=== PATIENT | female | born 1940 | race African-American/Black ===

== ENCOUNTER 2016-05-29 15:19 | Inpatient (IN) | payer MEDICARE, OTHER ==
[~2016-05-29] VITALS: Ht 154.9 cm; Wt 62.1 kg
[2016-05-29 15:41] VITALS: BP 144/71
[2016-05-29] MEDS ORDERED: DuoNeb 0.5-3(2.5)mg/3ml neb HHN ONE (15:45)
--- NOTE | 2016-05-29 15:46 | Emergency Room Report ---
History of Present Illness General Chief Complaint: Dyspnea/Respdistress Source: Patient Present Illness HPI Patient is a 75-year-old female who presented after increased cough and difficulty breathing. Patient had prior history of asthma. Patient has been having increased cough which had been present for approximately 2 weeks. Patient had not been recent steroids. Patient been taking Advair inhaler. She had been taking cough syrup. She had not been having any leg pain or swelling. The patient been having increased difficulty with lying flat. Patient had previously been told she may have COPD. Patient had some worsening of symptoms and presented to the hospital. Allergies: Coded Allergies: ACETAMINOPHEN (Verified Allergy, Unknown, 05/29/16) CODEINE (Verified Allergy, Unknown, 05/29/16) HYDROCODONE (Verified Allergy, Unknown, 05/29/16) PENICILLIN G (Verified Allergy, Unknown, 05/29/16) Patient History Now: No Reviewed Nursing Documentation: PMH: Agreed, PSxH: Agreed Nursing Documentation-PMH Past Medical History: No History, Except For Hx Hypertension: Yes Hx Asthma: Yes Hx Cerebrovascular Accident: Yes - 3 strokes Review of Systems All Other Systems: negative except mentioned in HPI Physical Exam Vital Signs Date Time Temp Pulse Resp B/P Pulse Ox O2 Delivery O2 Flow Rate FiO2 05/29/16 15:24 97.9 104 20 144/71 93 Room Air Sp02 EP Interpretation: reviewed, normal General Appearance: normal inspection, well appearing, no apparent distress, alert, GCS 15 Head: atraumatic ENT: normal ENT inspection, hearing grossly normal, normal voice Neck: normal inspection, full range of motion, supple, no bony tend Respiratory: normal inspection, no retraction, accessory muscle use, wheezing, expiration Cardiovascular #1: regular rate, rhythm, no edema Gastrointestinal: normal inspection, normal bowel sounds, non tender, soft, no guarding, no hernia Genitourinary: no CVA tenderness Musculoskeletal: normal inspection, back normal, normal range of motion Neurologic: normal inspection, alert, oriented x3, responsive, mender knit goods III-XII nml as tested, speech normal Psychiatric: normal inspection, judgement/insight normal, mood/affect normal Skin: normal inspection, normal color, no rash Medical Decision Making Diagnostic Impression: Primary Impression: Asthma exacerbation Additional Impression: COPD (chronic obstructive pulmonary disease) ER Course Patient presented for shortness of breath. Differential included but was not limited to anemia, pneumonia, pneumothorax, myocardial infarction, pericardial effusion, congestive heart failure, acidosis. Because of complexity of patient' s case laboratory testing and imaging studies were ordered. The patient was noted to have a history of asthma and this appears to be an exacerbation of her asthma. The patient was not febrile. Patient was given breathing treatments and was noted to have a minimal improvement. The patient' s chest x-ray one view interpreted by me showed bilateral lung angeles with interstitial edema and infiltrate. The laboratory studies were notable for normal BNP as well as negative troponin. Dr. Calin Tse was contacted for inpatient management Labs Test 05/29/16 17:25 White Blood Count 7.9 K/UL (4.8-10.8) Red Blood Count 4.65 M/UL (4.20-5.40) Hemoglobin 12.6 G/DL (12.0-16.0) Hematocrit 40.8 % (37.0-47.0) Mean Corpuscular Volume 88 FL (80-99) Mean Corpuscular Hemoglobin 27.0 PG (27.0-31.0) Mean Corpuscular Hemoglobin Concent 30.7 G/DL (32.0-36.0) Red Cell Distribution Width 13.2 % (11.6-14.8) Platelet Count 334 K/UL (150-450) Mean Platelet Volume 7.2 FL (6.5-10.1) Neutrophils (%) (Auto) 54.2 % (45.0-75.0) Lymphocytes (%) (Auto) 31.5 % (20.0-45.0) Monocytes (%) (Auto) 6.2 % (1.0-10.0) Eosinophils (%) (Auto) 6.6 % (0.0-3.0) Basophils (%) (Auto) 1.5 % (0.0-2.0) Prothrombin Time 11.1 SEC (9.30-11.50) Prothromb Time International Ratio 1.1 (0.9-1.1) Activated Partial Thromboplast Time 29 SEC (23-33) Urine Color Pale yellow Urine Appearance Clear Urine pH 7 (4.5-8.0) Urine Specific [place] 1.010 (1.005-1.035) Urine Protein Negative (NEGATIVE) Urine Glucose (UA) Negative (NEGATIVE) Urine Ketones Negative (NEGATIVE) Urine Occult Blood Negative (NEGATIVE) Urine Nitrite Negative (NEGATIVE) Urine Bilirubin Negative (NEGATIVE) Urine Urobilinogen Normal MG/DL (0.0-1.0) Urine Leukocyte Esterase 1+ (NEGATIVE) Urine RBC 0 /HPF (0 - 2) Urine WBC 2-4 /HPF (0 - 2) Urine Squamous Epithelial Cells Few /LPF (NONE/OCC) Urine Bacteria Few /HPF (NONE) Sodium Level 138 mEQ/L (135-145) Potassium Level 4.3 mEQ/L (3.4-4.9) Chloride Level 97 mEQ/L (98-107) Carbon Dioxide Level 26 mEQ/L (20-30) Anion Gap 15 (5-15) Blood Urea Nitrogen 9 mg/dL (7-23) Creatinine 0.8 mg/dL (0.5-0.9) Estimat Glomerular Filtration Rate mL/min (>60) Glucose Level 96 mg/dL (74-106) Lactic Acid Level 0.70 mmol/L (0.66-2.22) Calcium Level 8.9 mg/dL (8.6-10.2) Total Bilirubin 0.2 mg/dL (0.0-1.2) Aspartate Amino Transf (AST/SGOT) 21 U/L (5-40) Alanine Aminotransferase (ALT/SGPT) 15 U/L (3-33) Alkaline Phosphatase 78 U/L (35-104) Total Creatine Kinase 189 U/L (26-140) Creatine Kinase MB 3.7 ng/mL (< 3.8) Creatine Kinase MB Relative Index 1.9 Troponin I < 0.30 ng/mL (<=0.30) Pro-B-Type Natriuretic Peptide 56 pg/mL (0-125) Total Protein 7.7 g/dL (6.6-8.7) Albumin 3.4 g/dL (3.5-5.2) Globulin 4.3 g/dL Albumin/Globulin Ratio 0.7 (1.0-2.7) Last Vital Signs Date Time Temp Pulse Resp B/P Pulse Ox O2 Delivery O2 Flow Rate FiO2 05/29/16 15:24 97.9 104 20 144/71 93 Room Air Status: unchanged Disposition: ADMITTED INPATIENT Condition: Serious Maxwell Chu May 29, 2016 15:46
[2016-05-29] MEDS ORDERED: Azithromycin 500 MG in D5W 275 ML IVPB ONE (16:30)
[2016-05-29] MEDS ORDERED: Azithromycin Inj IV ONE (17:08)
[2016-05-29 17:43] VITALS: BP 131/83
[2016-05-29 17:52] LABS: BASOPHILS % (AUTO) 1.5 % (0.0-2.0); EOSINOPHILS % (AUTO) 6.6 % (0.0-3.0); LYMPHOCYTES % (AUTO) 31.5 % (20.0-45.0); MEAN CORPUSCULAR HGB CONC 30.7 G/DL (32.0-36.0); MEAN CORPUSCULAR VOLUME 88 FL (80-99); MEAN PLATELET VOLUME 7.2 FL (6.5-10.1); MONOCYTES % (AUTO) 6.2 % (1.0-10.0); NEUTROPHILS % (AUTO) 54.2 % (45.0-75.0); PLATELET COUNT 334 K/UL (150-450); RED BLOOD COUNT 4.65 M/UL (4.20-5.40); RED CELL DISTRIBUTION WIDTH 13.2 % (11.6-14.8); WHITE BLOOD COUNT 7.9 K/UL (4.8-10.8)
[2016-05-29 17:55] LABS: APPEARANCE,URINE CLEAR; KETONES,URINE NEGATIVE (NEGATIVE); LEUKOCYTE ESTERASE ,URINE 1+ (NEGATIVE); NITRITE,URINE NEGATIVE (NEGATIVE); PH,URINE 7 (4.5-8.0); PROTEIN,URINE NEGATIVE (NEGATIVE); UROBILINOGEN,URINE NORMAL MG/DL (0.0-1.0)
[2016-05-29 18:03] LABS: INR 1.1 (0.9-1.1); PROTHROMBIN TIME 11.1 SEC (9.30-11.50)
[2016-05-29 18:06] LABS: ALANINE AMINOTRANSFERASE 15 U/L (3-33); ALBUMIN/GLOBULIN RATIO 0.7 (1.0-2.7); ANION GAP 15 (5-15); ASPARTATE AMINO TRANSFERASE 21 U/L (5-40); CALCIUM 8.9 mg/dL (8.6-10.2); CARBON DIOXIDE 26 mEQ/L (20-30); CHLORIDE 97 mEQ/L (98-107); CREATININE 0.8 mg/dL (0.5-0.9); HEMOLYSIS 7; POTASSIUM 4.3 mEQ/L (3.4-4.9); SODIUM 138 mEQ/L (135-145); TOTAL PROTEIN 7.7 g/dL (6.6-8.7); TROPONIN I < 0.30 ng/mL (<=0.30)
[2016-05-29 18:11] LABS: BACTERIA,URINE FEW /HPF; RBC,URINE 0 /HPF (0 - 2); SQUAMOUS EPITHELIAL CELL,UR FEW /LPF (NONE/OCC)
[2016-05-29 18:17] LABS: CKMB 3.7 ng/mL (< 3.8)
[2016-05-29] MEDS ORDERED: VITAMIN D250000 UNI1 ORAL (18:27)
[2016-05-29] MEDS ORDERED: IBUPROFEN600 MG ORAL (18:27)
[2016-05-29] MEDS ORDERED: BENAZEPRIL HCL10 MG ORAL (18:27)
[2016-05-29] MEDS ORDERED: ALBUTEROL2.5 MG/3 M INH (18:29)
[2016-05-29] MEDS ORDERED: FAMOTIDINE20 MG ORAL (18:29)
[2016-05-29] MEDS ORDERED: ADVAIR 250-501 EACH INH (18:29)
[2016-05-29 19:44] VITALS: BP 129/75
[2016-05-29 22:22] VITALS: BP 107/64
[2016-05-29] MEDS ORDERED: Albuterol ud Inhalation HHN PRN (22:45)
[2016-05-29] MEDS ORDERED: AZOPT10 ML OP (22:49)
[2016-05-29] MEDS ORDERED: BRIMONIDINE TART5 ML BOTH EYES (22:49)
[2016-05-29] MEDS ORDERED: LUMIGAN2.5 ML BOTH EYES (22:49)
[2016-05-29] MEDS ORDERED: BEPREVE10 ML OP (22:49)
[2016-05-30] VITALS: BP 138/67
[2016-05-30 04:00] VITALS: BP 122/65
[2016-05-30 08:00] VITALS: BP 133/69
[2016-05-30 08:21] LABS: BASOPHILS % (AUTO) 1.3 % (0.0-2.0); EOSINOPHILS % (AUTO) 9.5 % (0.0-3.0); MEAN CORPUSCULAR HEMOGLOBIN 27.2 PG (27.0-31.0); MEAN CORPUSCULAR HGB CONC 30.9 G/DL (32.0-36.0); MEAN CORPUSCULAR VOLUME 88 FL (80-99); MONOCYTES % (AUTO) 6.4 % (1.0-10.0); NEUTROPHILS % (AUTO) 50.7 % (45.0-75.0); PLATELET COUNT 323 K/UL (150-450); RED BLOOD COUNT 4.64 M/UL (4.20-5.40); RED CELL DISTRIBUTION WIDTH 13.5 % (11.6-14.8); WHITE BLOOD COUNT 6.6 K/UL (4.8-10.8)
[2016-05-30] MEDS: guaiFENesin 100mg/5ml Liq ud ORAL PRN ×3 (08:36→17:49)
[2016-05-30 08:45] LABS: ANION GAP 13 (5-15); CALCIUM 9.2 mg/dL (8.6-10.2); CARBON DIOXIDE 27 mEQ/L (20-30); CHLORIDE 98 mEQ/L (98-107); CREATININE 0.8 mg/dL (0.5-0.9); HEMOLYSIS 0; SODIUM 138 mEQ/L (135-145)
[2016-05-30] MEDS ORDERED: Benazepril 10mg tab ORAL SCH (09:00)
[2016-05-30] MEDS ORDERED: Heparin 5000 units/ml inj SUBQ SCH (09:00)
[2016-05-30] MEDS ORDERED: Advair 250/50 Inhaler - 14 dose INH SCH (09:00)
[2016-05-30] MEDS ORDERED: Famotidine 20 MG/ 2ML VIAL IVP SCH (09:00)
[2016-05-30] MEDS ORDERED: Solu-MEDROL 40mg Inj IVP SCH (09:30)
[2016-05-30 12:04] VITALS: BP 125/63
--- NOTE | 2016-05-30 12:18 | Diagnostic Imaging Report ---
Indication: SOB Technique: One view of the chest Comparison: none Findings: Heart size is upper limits normal. There is bilateral mostly interstitial parenchymal disease. Presence of numerous small cysts bilaterally suggesting may be a significant chronic component to this, however. Pleural spaces are clear Impression: Bilateral pulmonary mostly interstitial parenchymal disease, acuity indeterminate. Correlate with clinical findings
[2016-05-30 16:00] VITALS: BP 118/67
[2016-05-30] MEDS ORDERED: Albuterol ud Inhalation HHN PRN (17:00)
[2016-05-30] MEDS: Advair 250/50 Inhaler - 14 dose INH SCH (19:11)
--- NOTE | 2016-05-30 19:58 | History and Physical Report ---
DATE OF ADMISSION: 05/29/2016 REASON FOR ADMISSION: Shortness of breath, respiratory insufficiency, and COPD. HISTORY OF PRESENT ILLNESS: The patient is a 75-year-old female who presents with increasing cough, difficulty breathing. The patient with known history of asthma/COPD. The patient is not on oxygen at home. The patient with increasing cough and difficulty mobilizing sputum over the past two weeks, worsening in severity. No recent steroid use. The patient has been taking her Advair inhaler and currently asking for cough medicine. The patient denies any neck pain, chest pain, chest tightness, or hemoptysis. No ill contacts. No recent travel. The patient has worsening symptoms for a while now presents for evaluation. PAST MEDICAL HISTORY: Notable for the above. The patient has history of three strokes in the past, hypertension, and asthma/COPD. MEDICATIONS: Reviewed. ALLERGIES: Reviewed. SOCIAL HISTORY: She does not smoke. She does have a history of smoking . She lives with her family. REVIEW OF SYSTEMS: The patient's review of systems otherwise negative. The patient does admit to some arthritis. PHYSICAL EXAMINATION: GENERAL: The patient is a well-developed female, otherwise comfortable. VITAL SIGNS: Blood pressure 133/69, pulse 74, respiratory rate 21, saturation 95%, and temperature is 96.8 degrees. HEENT: Fairly negative. Extraocular movements are grossly intact. NECK: Supple. No jugular venous distention. LUNGS: Reduced air entry. Occasional wheezes, otherwise clear. CARDIAC: Normal S1 and S2. Regular rhythm. Systolic murmur noted at the parasternal border. No rubs or gallops. ABDOMEN: Soft, nontender, and nondistended. EXTREMITIES: No cyanosis. No clubbing. No edema. NEUROLOGIC: Grossly nonfocal. LABORATORY AND DIAGNOSTIC DATA: Laboratory data reviewed. CBC essentially normal. Chemistry fairly negative. Blood sugar slightly elevated 118. IMPRESSION: 1. Chronic obstructive pulmonary disease/asthma with acute exacerbation. 2. Remote history of smoking. 3. Respiratory insufficiency. 4. Possible mild underlying respiratory infection. 5. Hypertension. 6. Hypertensive heart disease. RECOMMENDATIONS: 1. Support clinically and monitor. 2. Receiving nebulized therapy, Advair. 3. We will add Solu-Medrol for the next 48 hours and monitor the need for further changes, and discharge the patient to home with outpatient followup. Calin Tse M.D. DR: BRAYDEN JOB#: [id number] CC: MAL
[2016-05-30 20:00] VITALS: BP 123/61
[2016-05-30] MEDS: Solu-MEDROL 40mg Inj IVP SCH (20:51)
[2016-05-30] MEDS: Heparin 5000 units/ml inj SUBQ SCH (20:55)
[2016-05-31] VITALS: BP 147/64
--- NOTE | 2016-05-31 | Cardiology Report ---
APPROVED REPORT EKG Measurement Heart [id number] PA [id number] Normal sinus rhythm Normal ECG
[2016-05-31 04:00] VITALS: BP 139/66
[2016-05-31] MEDS: guaiFENesin 100mg/5ml Liq ud ORAL PRN (08:04)
[2016-05-31] MEDS: Solu-MEDROL 40mg Inj IVP SCH ×2 (08:04→20:33)
[2016-05-31] MEDS: Heparin 5000 units/ml inj SUBQ SCH ×2 (08:05→20:39)
[2016-05-31] MEDS: Benazepril 10mg tab ORAL SCH (08:08)
[2016-05-31 08:18] VITALS: BP 120/66
[2016-05-31] MEDS: Famotidine 20 MG/ 2ML VIAL IVP SCH (09:01)
[2016-05-31] MEDS: Advair 250/50 Inhaler - 14 dose INH SCH ×2 (09:02→18:00)
[2016-05-31 12:00] VITALS: BP 124/63
--- NOTE | 2016-05-31 15:13 | General Progress Note ---
Assessment/Plan Assessment/Plan IMPRESSION: 1. Chronic obstructive pulmonary disease/asthma with acute exacerbation. 2. Remote history of smoking. 3. Respiratory insufficiency. 4. Possible mild underlying respiratory infection. 5. Hypertension. 6. Hypertensive heart disease. Plan no change respiratory care convert to PO and inhalers dc in am home health on dc pft after dc to evaluate status impression, plan, and exam edited and reviewed in detail care discussed with RN Subjective Allergies: Coded Allergies: ORANGE (Verified Allergy, Mild, Skin irritation/itching, 05/30/16) PINEAPPLE (Verified Allergy, Mild, Skin irritation/itching, 05/30/16) STRAWBERRY (Verified Allergy, Mild, Skin irritation/itching, 05/30/16) ACETAMINOPHEN (Verified Allergy, Unknown, 05/29/16) CODEINE (Verified Allergy, Unknown, 05/29/16) HYDROCODONE (Verified Allergy, Unknown, 05/29/16) PENICILLIN G (Verified Allergy, Unknown, 05/29/16) Subjective care noted overall better d/w daughter in length Objective Last 24 Hour Vital Signs Date Time Temp Pulse Resp B/P Pulse Ox O2 Delivery O2 Flow Rate FiO2 05/31/16 12:00 98.2 99 20 124/63 93 Room Air 05/31/16 08:18 97.9 84 20 120/66 93 Nasal Cannula 2.0 05/31/16 08:08 120/66 05/31/16 04:00 97.2 71 18 139/66 99 Room Air 05/31/16 00:00 96.8 77 18 147/64 97 Room Air 05/30/16 20:00 97.5 83 20 123/61 100 Nasal Cannula 2.0 05/30/16 16:00 97.7 79 20 118/67 99 Nasal Cannula 2.0 Intake and Output 05/30/16 05/31/16 19:00 07:00 Intake Total 600 ml 420 ml Balance 600 ml 420 ml Intake Oral 600 ml 420 ml # Voids 3 Height (Feet): 5 Height (Inches): 1.00 Weight (Pounds): 137 Objective GENERAL: The patient is a well-developed female, otherwise comfortable. and much improved HEENT: Fairly negative. Extraocular movements are grossly intact. NECK: Supple. No jugular venous distention. LUNGS: Reduced air entry. minimal wheezes, otherwise clearer. CARDIAC: Normal S1 and S2. Regular rhythm. Systolic murmur noted at the parasternal border. No rubs or gallops. ABDOMEN: Soft, nontender, and nondistended. EXTREMITIES: No cyanosis. No clubbing. No edema. NEUROLOGIC: Grossly nonfocal. MARILU GRANT May 31, 2016 15:13
[2016-05-31 16:00] VITALS: BP 138/79
[2016-05-31 20:00] VITALS: BP 134/67
[2016-06-01] VITALS: BP 110/57
[2016-06-01 04:00] VITALS: BP 128/65
[2016-06-01 08:00] VITALS: BP 140/65
[2016-06-01 09:00] VITALS: BP 140/65
[2016-06-01] MEDS: Benazepril 10mg tab ORAL SCH (09:00)
[2016-06-01] MEDS: Solu-MEDROL 40mg Inj IVP SCH (09:00)
[2016-06-01] MEDS: Heparin 5000 units/ml inj SUBQ SCH (09:07)
[2016-06-01] MEDS: Famotidine 20 MG/ 2ML VIAL IVP SCH (09:52)
[2016-06-01] MEDS ORDERED: [UNRECOGNIZED DRUG - OTHER] PO (10:07)
[2016-06-01] MEDS ORDERED: ZITHROMAX TRI-500 MG ORAL (10:14)
[2016-06-01] MEDS ORDERED: MEDROL2 MG PO (10:16)
--- NOTE | 2016-06-01 11:37 | General Progress Note ---
Assessment/Plan Assessment/Plan IMPRESSION: 1. Chronic obstructive pulmonary disease/asthma with acute exacerbation. 2. Remote history of smoking. 3. Respiratory insufficiency. 4. Possible mild underlying respiratory infection. 5. Hypertension. 6. Hypertensive heart disease. Plan no change respiratory care advair and incruise given dc today home health on dc pft after dc to evaluate status in the office impression, plan, and exam edited and reviewed in detail care discussed with RN Subjective Allergies: Coded Allergies: ORANGE (Verified Allergy, Mild, Skin irritation/itching, 05/30/16) PINEAPPLE (Verified Allergy, Mild, Skin irritation/itching, 05/30/16) STRAWBERRY (Verified Allergy, Mild, Skin irritation/itching, 05/30/16) ACETAMINOPHEN (Verified Allergy, Unknown, 05/29/16) CODEINE (Verified Allergy, Unknown, 05/29/16) HYDROCODONE (Verified Allergy, Unknown, 05/29/16) PENICILLIN G (Verified Allergy, Unknown, 05/29/16) Subjective care noted much improved off oxygen wants to go home Objective Last 24 Hour Vital Signs Date Time Temp Pulse Resp B/P Pulse Ox O2 Delivery O2 Flow Rate FiO2 06/01/16 09:00 140/65 06/01/16 08:00 97.5 78 20 140/65 97 Room Air 06/01/16 04:00 97.9 70 18 128/65 95 Room Air 06/01/16 00:00 97.7 68 18 110/57 97 Room Air 05/31/16 20:00 98.4 67 18 134/67 100 Room Air 05/31/16 16:00 98.1 85 20 138/79 97 Room Air 05/31/16 12:00 98.2 99 20 124/63 93 Room Air Intake and Output 05/31/16 06/01/16 19:00 07:00 Intake Total 400 ml 350 ml Balance 400 ml 350 ml Intake Oral 400 ml 350 ml # Voids 2 4 Labs Test 05/29/16 17:25 05/30/16 07:40 White Blood Count 7.9 K/UL (4.8-10.8) 6.6 K/UL (4.8-10.8) Red Blood Count 4.65 M/UL (4.20-5.40) 4.64 M/UL (4.20-5.40) Hemoglobin 12.6 G/DL (12.0-16.0) 12.6 G/DL (12.0-16.0) Hematocrit 40.8 % (37.0-47.0) 40.9 % (37.0-47.0) Mean Corpuscular Volume 88 FL (80-99) 88 FL (80-99) Mean Corpuscular Hemoglobin 27.0 PG (27.0-31.0) 27.2 PG (27.0-31.0) Mean Corpuscular Hemoglobin Concent 30.7 G/DL (32.0-36.0) 30.9 G/DL (32.0-36.0) Red Cell Distribution Width 13.2 % (11.6-14.8) 13.5 % (11.6-14.8) Platelet Count 334 K/UL (150-450) 323 K/UL (150-450) Mean Platelet Volume 7.2 FL (6.5-10.1) 7.0 FL (6.5-10.1) Neutrophils (%) (Auto) 54.2 % (45.0-75.0) 50.7 % (45.0-75.0) Lymphocytes (%) (Auto) 31.5 % (20.0-45.0) 32.0 % (20.0-45.0) Monocytes (%) (Auto) 6.2 % (1.0-10.0) 6.4 % (1.0-10.0) Eosinophils (%) (Auto) 6.6 % (0.0-3.0) 9.5 % (0.0-3.0) Basophils (%) (Auto) 1.5 % (0.0-2.0) 1.3 % (0.0-2.0) Prothrombin Time 11.1 SEC (9.30-11.50) Prothromb Time International Ratio 1.1 (0.9-1.1) Activated Partial Thromboplast Time 29 SEC (23-33) Urine Color Pale yellow Urine Appearance Clear Urine pH 7 (4.5-8.0) Urine Specific [place] 1.010 (1.005-1.035) Urine Protein Negative (NEGATIVE) Urine Glucose (UA) Negative (NEGATIVE) Urine Ketones Negative (NEGATIVE) Urine Occult Blood Negative (NEGATIVE) Urine Nitrite Negative (NEGATIVE) Urine Bilirubin Negative (NEGATIVE) Urine Urobilinogen Normal MG/DL (0.0-1.0) Urine Leukocyte Esterase 1+ (NEGATIVE) Urine RBC 0 /HPF (0 - 2) Urine WBC 2-4 /HPF (0 - 2) Urine Squamous Epithelial Cells Few /LPF (NONE/OCC) Urine Bacteria Few /HPF (NONE) Sodium Level 138 mEQ/L (135-145) 138 mEQ/L (135-145) Potassium Level 4.3 mEQ/L (3.4-4.9) 4.0 mEQ/L (3.4-4.9) Chloride Level 97 mEQ/L (98-107) 98 mEQ/L (98-107) Carbon Dioxide Level 26 mEQ/L (20-30) 27 mEQ/L (20-30) Anion Gap 15 (5-15) 13 (5-15) Blood Urea Nitrogen 9 mg/dL (7-23) 8 mg/dL (7-23) Creatinine 0.8 mg/dL (0.5-0.9) 0.8 mg/dL (0.5-0.9) Estimat Glomerular Filtration Rate mL/min (>60) mL/min (>60) Glucose Level 96 mg/dL (74-106) 118 mg/dL (74-106) Lactic Acid Level 0.70 mmol/L (0.66-2.22) Calcium Level 8.9 mg/dL (8.6-10.2) 9.2 mg/dL (8.6-10.2) Total Bilirubin 0.2 mg/dL (0.0-1.2) Aspartate Amino Transf (AST/SGOT) 21 U/L (5-40) Alanine Aminotransferase (ALT/SGPT) 15 U/L (3-33) Alkaline Phosphatase 78 U/L (35-104) Total Creatine Kinase 189 U/L (26-140) Creatine Kinase MB 3.7 ng/mL (< 3.8) Creatine Kinase MB Relative Index 1.9 Troponin I < 0.30 ng/mL (<=0.30) Pro-B-Type Natriuretic Peptide 56 pg/mL (0-125) Total Protein 7.7 g/dL (6.6-8.7) Albumin 3.4 g/dL (3.5-5.2) Globulin 4.3 g/dL Albumin/Globulin Ratio 0.7 (1.0-2.7) Height (Feet): 5 Height (Inches): 1.00 Weight (Pounds): 137 Objective GENERAL: The patient is a well-developed female, otherwise comfortable. and much improved HEENT: Fairly negative. Extraocular movements are grossly intact. NECK: Supple. No jugular venous distention. LUNGS: improved air entry. no wheezes, otherwise clearer. CARDIAC: Normal S1 and S2. Regular rhythm. Systolic murmur noted at the parasternal border. No rubs or gallops. ABDOMEN: Soft, nontender, and nondistended. EXTREMITIES: No cyanosis. No clubbing. No edema. NEUROLOGIC: Grossly nonfocal. MARILU GRANT Jun 01, 2016 11:37
--- NOTE | 2016-06-02 14:47 | Discharge Summary ---
Discharge Summary Hospital Course Date of Admission May 29, 2016 at 16:48 Date of Discharge Jun 01, 2016 at 10:34 Admitting Diagnosis Copd exacerbation HPI Meghann Shabazz is a 75 year old female who was admitted on May 29, 2016 at 16:48 for Chronic Obstructive Pulmonary Disease Exacerbation Hospital Course [id number] Discharge Discharge Disposition Patient was discharged to Home (01) Discharge Diagnoses: Rach Richter NP Jun 02, 2016 14:47
--- NOTE | 2016-06-03 02:09 | Discharge Summary 2 SIG ---
DATE OF ADMISSION: 05/29/2016 DATE OF DISCHARGE: 06/01/2016 BRIEF HOSPITAL COURSE: The patient is a 75-year-old female who presented with increasing cough and difficulty breathing. The patient has a known history of asthma/COPD, and she is not on oxygen at home. She presented with increasing cough and difficulty moving sputum over the past two weeks with worsening in severity. No recent steroid use. She has been taking her Advair inhaler and medications not working with worsening of symptoms. There were no ill contacts and no recent travel. She was admitted and was given respiratory support and was given IV Solu-Medrol with nebulization. Steroid was eventually converted to p.o. and was discharged home with home health. Advised to follow up in the office for outpatient pulmonary function test. FINAL DIAGNOSES: 1. Chronic obstructive pulmonary disease/asthma with acute exacerbation. 2. Remote history of smoking. 3. Respiratory insufficiency. 4. Mild upper respiratory infection. 5. Hypertension. 6. Hypertensive heart disease. Calin Tse M.D. I have been assigned to dictate discharge summary on this account and I was not involved in the patient's management. Rach Richter N.P. DR: ASHLIE JOB#: [id number] CC:
== END 2016-06-01 10:34 | disposition home health service (06) | DRG 192 ==
LOC: EMR 16:00 → 2E 16:48 → EDBEDREQ 22:31 → 3E 05-30 16:39
DX: J44.1 Chronic obstructive pulmonary disease with (acute) exacerbation (principal); I11.9 Hypertensive heart disease without heart failure; J06.9 Acute upper respiratory infection, unspecified; Z87.891 Personal history of nicotine dependence
CPT/HCPCS: 36415; 71010; 80048; 80053; 81001; 81003; 82550; 82553; 83605; 83880; 84484; 85025; 85610; 85730; 87040; 93005; 94640; 94664; J7620

== ENCOUNTER → 2016-06-14 | Outpatient (CLI) | payer MEDICARE, OTHER ==
[~2016-06-14] MED LIST: ADVAIR 250-501 EACH INH; ALBUTEROL2.5 MG/3 M INH; AZOPT10 ML OP; BENAZEPRIL HCL10 MG ORAL; BEPREVE10 ML OP; BRIMONIDINE TART5 ML BOTH EYES; FAMOTIDINE20 MG ORAL; IBUPROFEN600 MG ORAL; LUMIGAN2.5 ML BOTH EYES; MEDROL2 MG PO; VITAMIN D250000 UNI1 ORAL; ZITHROMAX TRI-500 MG ORAL; [UNRECOGNIZED DRUG - OTHER] PO
--- NOTE | 2016-06-14 16:34 | Diagnostic Imaging Report ---
Clinical Indication: SOB Technique: Spiral acquisition obtained through the chest. No IV contrast utilized, per high resolution protocol. Axial 5 x 5 mm slices were reconstructed. Axial 1 mm thick slices were reconstructed using high resolution algorithm at 10 mm intervals. Multiplanar reconstructions generated. Total dose length product 530 mGycm. CTDIvol(s) 17 mGy. Dose reduction achieved using automated exposure control Comparison: Reference made to chest radiograph 05/29/2016 Findings: There is some image degradation at the lung bases due to respiratory motion artifact. There is extensive interstitial lung disease involving most of both lower lobes. There is also some involvement of the upper lobes, more in the right upper lobe and left upper lobe. There is also involvement of the right middle lobe. The interstitial disease consists predominantly of honeycombing and, to a slight extent, lower lobe bronchiectasis. A single bulla is seen in the medial lingula. No infiltrates, masses, or nodules. No effusions. No significant congestion. The pulmonary arteries are are ectatic, with the right main pulmonary artery frankly dilated measuring 3 cm in diameter. The heart size is normal. There is no pericardial effusion. There are prominent borderline enlarged right paratracheal and prevascular space lymph nodes. The thyroid is slightly heterogeneous, contains some left lobe calcifications. No axillary or chest wall mass or adenopathy demonstrated. The distal esophagus is distended. The bones are except for minimal thoracic degenerative changes. The included upper abdominal viscera are unremarkable. Impression: Bilateral extensive diffuse but lower lobe predominant interstitial disease. Honeycomb pattern and bronchiectasis indicates chronic end-stage interstitial fibrosis, nonspecific as regards etiology of the original disease process Dilated right pulmonary artery, somewhat ectatic main pulmonary artery, suspicious for pulmonary dural hypertension Borderline right paratracheal lymphadenopathy Focally distended distal esophagus. Uncertain significance,. Indicate motility disorder, hiatal hernia, much less likely distal obstructive lesion Somewhat enlarged somewhat heterogeneous thyroid with calcified nodules on the left. Consider ultrasound for further evaluation The CT scanner at [facility] is accredited by the [employer] and the scans are performed using protocols designed to limit radiation exposure to as low as reasonably achievable to attain images of sufficient resolution adequate for diagnostic evaluation. CT
== END | disposition home or self-care (01) ==
LOC: CAT 13:29
DX: R06.02 Shortness of breath (principal); J84.9 Interstitial pulmonary disease, unspecified; J84.10 Pulmonary fibrosis, unspecified; E04.1 Nontoxic single thyroid nodule
CPT/HCPCS: 71250

== ENCOUNTER 2018-12-14 14:45 | Inpatient (IN) | payer MEDICARE, OTHER ==
[~2018-12-14] VITALS: Ht 154.9 cm; Wt 59.0 kg
--- NOTE | 2018-12-14 13:50 | NUR ---
NURSE NOTES: Report received from Patrick Pride RN. Pt. not on the floor at this time. ETA 1500.
--- NOTE | 2018-12-14 15:12 | NUR ---
NURSE NOTES: Report received from Damien, Ambulance personnel. Pt. came in via gurhelio. AOx1. In 2L NC. Denies pain. IV L AC 20g placed at [place] on 12/14 per family, intact, SL. Pt. diagnosis per [place] AMS, pneumonia and hypoglycemia. Communicated with ER to fix admission diagnosis. monitor technician placed. Oriented to room. Bed on lowest position, side rails upx2, brakes engaged, alarm on, call light within easy reach. Family at bedside
--- NOTE | 2018-12-14 18:41 | Diagnostic Imaging Report ---
EXAM: MR Head Without Intravenous Contrast CLINICAL HISTORY: AMS TECHNIQUE: Magnetic resonance images of the head brain without intravenous contrast in multiple planes. COMPARISON: No relevant prior studies available. FINDINGS: Brain: Limited due to motion. No diffusion abnormality to indicate acute or subacute infarct. No clear hemorrhage or mass. Small chronic infarct in the left cerebellar hemisphere. Small chronic infarcts bilateral basal ganglia, caudate nucleus on the right and lentiform nucleus on the left. Generalized involutional and microvascular ischemic changes. Ventricles: The ventricular size is commensurate with central volume loss. Bones joints: Unremarkable. Sinuses: Left maxillary mucous retention cyst. Mastoid air cells: Unremarkable as visualized. No mastoid effusion. Orbits: Unremarkable as visualized. IMPRESSION: No clear acute intracranial process on motion limited exam. Small chronic basal ganglia and left cerebellar infarcts. Generalized involutional and microvascular ischemic changes. Left maxillary sinus mucous retention cyst
--- NOTE | 2018-12-14 19:02 | History & Physical ---
History and Physical History & Physicial Hubert Kaplan MD Dec 14, 2018 19:02
[2018-12-14] MEDS: D5 1/2NS 1,000 ML IV SCH (19:08)
[2018-12-14] MEDS ORDERED: Albuterol/Ipratropium 3ml neb HHN PRN (19:15)
--- NOTE | 2018-12-14 19:40 | NUR ---
NURSE NOTES: Received pt and report from SAMRA Head. Observed pt resting in bed with both eyes closed, arousable to voice and light touch. Pt is A/Ox1. air conditioning service technician is in placed, IV site intact, asymptomatic, and patent. Bed is in the lowest position and locked. Call light within reach. No signs/ symptoms of acute distress noted at this time. Will continue plan of care.
--- NOTE | 2018-12-14 19:48 | NUR ---
HAND-OFF: Report given to SAMRA Dowling. Plan of care endorsed.
[2018-12-14 20:00] VITALS: BP 149/69
--- NOTE | 2018-12-14 20:15 | History and Physical Report ---
DATE OF ADMISSION: 12/14/2018 CHIEF COMPLAINT: Altered mental status. HISTORY OF PRESENT ILLNESS: This is a 78-year-old female with past medical history significant for hypertension, dementia, COPD, prior history of stroke x3, appendectomy, who presented initially to [facility] after was noted to have altered mental status. The patient last time while she was eating burritos, the family member noticed that the patient is unresponsive and subsequently was transferred to the hospital. Shortly after initial evaluation at the emergency room, the patient was found to be as well as altered, unresponsive. Chest x-ray was done at the [facility] showed that there was bilateral lung infiltrate, most prominent at the lung base, finding are concerned about pneumonia, although the component of the pulmonary edema is likely presented and patient subsequently was transferred to [facility] for further evaluation and therapy. The patient subsequently was admitted to the hospital with altered mental status, most likely secondary to acute stroke as well as aspiration pneumonia. PAST MEDICAL HISTORY AND PAST SURGICAL HISTORY: Significant for prior history of stroke x3, hypertension, COPD, appendectomy, glaucoma, and dementia. MEDICATIONS: At home significant for benazepril, Alphagan, vitamin D, famotidine, Advair, ibuprofen, albuterol nebulizer, azithromycin, Lumigan, Medrol Dosepak was taken in the past. ALLERGIES: Acetaminophen, codeine, hydrocodone, penicillin, pineapple, strawberry, orange. SOCIAL HISTORY: Denies any smoking, alcohol, or drugs. FAMILY HISTORY: Heart disease runs in the family, hypertension, diabetes, stroke. Sister had a history of colon cancer. REVIEW OF SYSTEMS: Mostly as above. Denies any dysuria, frequency, hematuria. Denies any fever or chills. Denies any hemoptysis or hematochezia. PHYSICAL EXAMINATION: VITAL SIGNS: From the [place] was noted to be temperature 97.7, pulse of 67, respirations 17, blood pressure 147/67, repeat was 130/76. GENERAL: The patient is awake, responsive, groggy, sleepy occasionally. HEENT: Head and neck examination, pupils are reactive to light. Extraocular movements intact. NECK: Supple. No JVD. LUNGS: Good air entry. No wheezing or rhonchi. Decreased air entry in the bases. Poor inspiratory effort. HEART: S1 and S2. Regular rhythm. No gallops . ABDOMEN: Soft, nondistended, nontender. Positive bowel sounds. EXTREMITIES: No cyanosis, clubbing, or edema. NEUROLOGIC: Cranial nerves II through XII grossly normal. Motor is 5/5 in all extremities. Gait was not assessed due to the patient's status. RECTAL: Refused and deferred. GENITOURINARY: Refused and deferred. PSYCHIATRIC: Mood and affect is intact. LABORATORY AND DIAGNOSTIC DATA: On admission from [place], the patient had a CT scan of the brain was done noted to have brain atrophy with white matter ischemic changes, no acute infarction, bleeding, mass effect seen. No extraaxial fluid collection, probable lacunar infarction of the left basal ganglia and right thalamic, no acute finding, chronic changes of the brain atrophy with old lacunar infarction with white matter ischemia. Chest x-ray was noted bilateral lung infiltrates most prominent at the lung base, findings are concerning for the pneumonia, although the component of the pulmonary edema is likely presented with cardiomegaly. No large pleural effusion seen. WBC of 4.8, hemoglobin of 12, hematocrit 40, and platelets is 302. Sodium 140, potassium 4.0, chloride 103, bicarb 26, BUN 9, creatinine 0.6, glucose 92. INR is 1.2, PTT of 31. First troponin 0.02. ASSESSMENT: 1. Altered mental status, most likely secondary to the acute CVA and chronic CVA. 2. Aspiration pneumonia 3. Hypertension. 4. COPD. 5. PLAN: 1. Admit the patient to telemetry. 2. We will follow up with the laboratory as well as 2D echo. 3. Discussed with the daughter extensively at bedside. 4. Followup with MRI of the brain. 5. Code status is Full Code. 6. Discussed with Dr. Hedrick from Pulmonary Critical Care. 7. Broad-spectrum antibiotic with Rocephin and Flagyl. 8. DVT prophylaxis with heparin subcutaneous. Hubert Kaplan M.D. DR: Denice JOB#: [id number] CC:
[2018-12-14] MEDS: Aspirin Baby 81mg ORAL SCH (20:38)
[2018-12-14] MEDS: Heparin 5000 units/ml inj SUBQ SCH (20:43)
[2018-12-15] VITALS: BP 122/66
[2018-12-15 04:00] VITALS: BP 144/74
--- NOTE | 2018-12-15 07:25 | NUR ---
HAND-OFF: Report given to SAMRA Head. Pt is in stable condition. Plan of care endorsed.
--- NOTE | 2018-12-15 07:25 | NUR ---
NURSE NOTES: Report received from SAMRA Dowling. AOx2. In 2L NC. Denies any pain. Asking for food, will address to MD. IV running D5 1/2 NS at 75, site intact. Bed on lowest position, side rails upx2, brakes engaged. Call light within easy reach. Family at bedside.
[2018-12-15 08:00] VITALS: BP 138/77
--- NOTE | 2018-12-15 08:02 | Consultation ---
History of Present Illness General Date patient seen: Dec 15, 2018 Present Illness HPI 78-year-old female with PMHx of hypertension, dementia, COPD, stroke x3, who presented initially to [facility] with CC of ALOC when she was eating. the family member noticed that the patient is unresponsive . Initial evaluation at [place] revealed that her Chest x-ray has bilateral lung infiltrate, most prominent at the lung base. she transferred to [facility] for further evaluation. Allergies: Coded Allergies: ORANGE (Verified Allergy, Mild, Skin irritation/itching, 05/30/16) PINEAPPLE (Verified Allergy, Mild, Skin irritation/itching, 05/30/16) STRAWBERRY (Verified Allergy, Mild, Skin irritation/itching, 05/30/16) ACETAMINOPHEN (Verified Allergy, Unknown, 05/29/16) CODEINE (Verified Allergy, Unknown, 05/29/16) HYDROCODONE (Verified Allergy, Unknown, 05/29/16) PENICILLIN G (Verified Allergy, Unknown, 05/29/16) Medication History Scheduled Azithromycin (Zithromax Tri-Jaime), MG ORAL as directed, (Reported) Benazepril Hcl* (Benazepril Hcl*), 10 MG ORAL DAILY, (Reported) Bepotastine Besilate (Bepreve), 10 ML OP THREE TIMES A DAY, (Reported) Bimatoprost (Lumigan), 1 DROP BOTH EYES THREE TIMES A DAY, (Reported) Brimonidine Tartrate* (Alphagan*), 1 DROP BOTH EYES TID, (Reported) Brinzolamide (Azopt), 10 ML OP THREE TIMES A DAY, (Reported) Ergocalciferol (Vitamin D2)* (Vitamin D*), 50,000 UNIT ORAL ONCE A WEEK, ( Reported) Famotidine (Famotidine), 20 MG ORAL DAILY, (Reported) Fluticasone/Salmeterol (Advair 250-50 Diskus), 1 PUFF INH EVERY 12 HOURS, ( Reported) Ibuprofen* (Motrin*), 600 MG ORAL BID, (Reported) Methylprednisolone (Medrol), MG PO take as directed, (Reported) Scheduled PRN Albuterol Sulfate* (Albuterol Sulfate Hhn*), 3 ML INH Q4H PRN for Shortness of Breath, (Reported) Patient History Healthcare decision maker Luh True (daughter) Resuscitation status Full Code Advanced Directive on File No Past Medical/Surgical History Past Medical/Surgical History: (1) Hypertension (2) COPD (chronic obstructive pulmonary disease) (3) Alzheimer's dementia (4) History of CVA (cerebrovascular accident) Review of Systems All Other Systems: negative except mentioned in HPI Physical Exam General Appearance: WD/WN Lines, tubes and drains: peripheral HEENT: normocephalic, atraumatic Neck: non-tender, supple Respiratory/Chest: chest wall non-tender, lungs clear Breasts: no masses Cardiovascular/Chest: normal peripheral pulses Abdomen: normal bowel sounds, non tender Genitourinary/Rectal: normal genital exam, normal rectal exam Extremities: normal range of motion, non-tender Skin Exam: normal pigmentation 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 Last 24 Hour Vital Signs Date Time Temp Pulse Resp B/P (MAP) Pulse Ox O2 Delivery O2 Flow Rate FiO2 12/15/18 04:00 97.6 60 19 144/74 (97) 100 12/15/18 04:00 58 12/15/18 00:00 97.2 66 17 122/66 (84) 100 12/15/18 00:00 66 12/14/18 21:00 Nasal Cannula 2.0 12/14/18 20:00 97.7 69 18 149/69 (95) 98 12/14/18 20:00 76 12/14/18 16:14 Room Air 12/14/18 16:00 79 Intake and Output 12/14/18 12/15/18 19:00 07:00 Intake Total 120 ml Balance 120 ml Intake Oral 120 ml # Voids 1 2 Height (Feet): 5 Height (Inches): 1.00 Weight (Pounds): 130 Medications Current Medications Medications (Trade) Dose Ordered Sig/Lloyd Route PRN Reason Start Time Stop Time Status Last Admin Dose Admin Albuterol/ Ipratropium (Albuterol/ Ipratropium) 3 ml Q4H PRN HHN Shortness of Breath 12/14/18 19:15 12/19/18 19:14 Amlodipine Besylate (Norvasc) 5 mg DAILY ORAL 12/15/18 09:00 01/14/19 08:59 Aspirin (ASA) 81 mg DAILY ORAL 12/14/18 20:00 01/13/19 19:59 12/14/18 20:38 Ceftriaxone Sodium 1 gm/ Dextrose 55 ml @ 110 mls/hr Q24H IVPB 12/15/18 09:00 12/22/18 08:59 Dextrose/Sodium Chloride 1,000 ml @ 75 mls/hr [id number] IV 12/14/18 19:02 01/13/19 19:01 12/14/18 19:08 Heparin Sodium (Porcine) (Heparin 5000 units/ml) 5,000 units EVERY 12 HOURS SUBQ 12/14/18 21:00 01/13/19 20:59 Metronidazole 100 ml @ 100 mls/hr Q8HR IVPB 12/14/18 22:00 12/21/18 21:59 12/15/18 05:50 Ondansetron HCl (Zofran) 4 mg Q6H PRN IVP Nausea & Vomiting 12/14/18 16:15 01/13/19 16:14 Salmeterol Xinafoate/ Fluticasone (Advair 250/50 Diskus) 1 puffs BID INH 12/15/18 09:00 01/14/19 08:59 Assessment/Plan Problem List: (1) Aspiration pneumonia ICD Codes: J69.0 - Pneumonitis due to inhalation of food and vomit SNOMED: 065627411 (2) Acute encephalopathy ICD Codes: G93.40 - Encephalopathy, unspecified SNOMED: 84712271, 391495792 (3) COPD (chronic obstructive pulmonary disease) ICD Codes: J44.9 - Chronic obstructive pulmonary disease, unspecified SNOMED: 09730256 (4) Hypertension ICD Codes: I10 - Essential (primary) hypertension SNOMED: 28708635 (5) History of CVA (cerebrovascular accident) ICD Codes: Z86.73 - Personal history of transient ischemic attack (TIA), and cerebral infarction without residual deficits SNOMED: 435776737 (6) Alzheimer's dementia ICD Codes: G30.9 - Alzheimer's disease, unspecified; F02.80 - Dementia in other diseases classified elsewhere without behavioral disturbance SNOMED: 71474123 Assessment/Plan: check chest imagining sputum induction Echo to assess cardiac function monitor BP respiratory treatment check electrolytes. Gloria Hedrick MD Dec 15, 2018 08:02
[2018-12-15 09:00] LABS: ALANINE AMINOTRANSFERASE 16 U/L (12-78); ALBUMIN 2.7 G/DL (3.4-5.0); ALBUMIN/GLOBULIN RATIO 0.6 (1.0-2.7); ALKALINE PHOSPHATASE 71 U/L (46-116); ANION GAP 11 mmol/L (5-15); ASPARTATE AMINO TRANSFERASE 23 U/L (15-37); BILIRUBIN,TOTAL 0.7 MG/DL (0.2-1.0); BLOOD UREA NITROGEN 7 mg/dL (7-18); CALCIUM 8.6 MG/DL (8.5-10.1); CARBON DIOXIDE 24 MMOL/L (21-32); CHLORIDE 106 MMOL/L (98-107); CHOLESTEROL 137 MG/DL (< 200); CREATININE 0.6 MG/DL (0.55-1.30); HDL CHOLESTEROL 31 MG/DL (40-60); PHOSPHORUS 3.9 MG/DL (2.5-4.9); POTASSIUM 4.5 MMOL/L (3.5-5.1); SODIUM 140 MMOL/L (136-145); TRIGLYCERIDES 39 MG/DL (30-150)
[2018-12-15] MEDS: Wixela 250/50 Inhaler - 60 dose INH SCH ×2 (09:00→18:00)
[2018-12-15] MEDS: Heparin 5000 units/ml inj SUBQ SCH ×2 (09:00→21:41)
[2018-12-15] MEDS: Theophylline ER 100mg ORAL SCH ×2 (09:20→21:39)
[2018-12-15] MEDS: cefTRIAXone 1 GM in D5W 55 ML IVPB SCH (09:20)
[2018-12-15] MEDS: Aspirin Baby 81mg ORAL SCH (09:21)
[2018-12-15] MEDS: D5 1/2NS 1,000 ML IV SCH ×2 (09:33→21:39)
--- NOTE | 2018-12-15 09:33 | NUR ---
RADIOLOGY DEPT., CHEST X-RAY DONE.-P.DYE
[2018-12-15 10:26] LABS: BASOPHILS % (AUTO) 0.7 % (0.0-2.0); EOSINOPHILS % (AUTO) 9.8 % (0.0-3.0); HEMATOCRIT 39.4 % (37.0-47.0); HEMOGLOBIN 12.6 G/DL (12.0-16.0); LYMPHOCYTES % (AUTO) 30.7 % (20.0-45.0); MEAN CORPUSCULAR VOLUME 86 FL (80-99); MONOCYTES % (AUTO) 7.7 % (1.0-10.0); NEUTROPHILS % (AUTO) 51.2 % (45.0-75.0); PLATELET COUNT 300 K/UL (150-450); RED BLOOD COUNT 4.56 M/UL (4.20-5.40); RED CELL DISTRIBUTION WIDTH 12.3 % (11.6-14.8)
--- NOTE | 2018-12-15 11:13 | Diagnostic Imaging Report ---
EXAM: XR Chest, 1 View CLINICAL HISTORY: SOB TECHNIQUE: Frontal view of the chest. COMPARISON: Chest x-ray 05-29-2016 FINDINGS: Lungs: Diffuse bilateral airspace opacities, worse in the right lung. Pleural space: Probable small pleural effusions. No pneumothorax. Heart: Cardiomegaly. Mediastinum: Unremarkable. Bones joints: Unremarkable. IMPRESSION: Diffuse bilateral airspace opacities, worse in the right lung. Probable small pleural effusions and cardiomegaly. Findings may be CHF.
[2018-12-15 12:00] VITALS: BP 136/69
--- NOTE | 2018-12-15 12:45 | Cardiology Report ---
APPROVED REPORT EXAM: Two-dimensional and M-mode echocardiogram with Doppler and color Doppler. INDICATION CVA M-Mode DIMENSIONS IVSd1.5 (0.7-1.1cm)Left Atrium (MM)2.8 (1.6-4.0cm) LVDd4.6 (3.5-5.6cm)Aortic Root3.1 (2.0-3.7cm) PWd1.3 (0.7-1.1cm)Aortic Cusp Exc.1.6 (1.5-2.0cm) IVSs1.2 cm LVDs2.8 (2.5-4.0cm) PWs1.3 cm Normal left ventricular chamber size, systolic function and wall motion. Left ventricular ejection fraction estimated to be 60-65%. No evidence of pericardial effusion. Mild left ventricular hypertrophy. All other cardiac chamber sizes are within normal limits. Focal aortic valve sclerosis with adequate cusp excursion. Thickened mitral valve leaflets with normal excursion. Mitral annulus and aortic root calcification. Pulmonic valve not well visualized. Normal tricuspid valve structure. IVC at normal size with physiologic collapse. A color flow and spectral Doppler study was performed and revealed: No aortic insufficiency . Trace mitral regurgitation . Mitral diastolic velocities suggest reduced left ventricular relaxation c/w mild LV diastolic dysfunction (Grade I ). Mild tricuspid regurgitation. Tricuspid systolic velocities suggests peak right ventricular systolic pressure of 13 mmHg.
--- NOTE | 2018-12-15 12:56 | NUR ---
NURSE NOTES: Received report from SAMRA Head. Pt in bed, awake, talkative, asking for food, multiple family members at bedside, no complaints of pain, no apparent distress noted, bed in lowest position, call light within reach, discussed plan of care with patient and family.
--- NOTE | 2018-12-15 13:00 | NUR ---
NURSE NOTES: Report given to SAMRA Lam. Plan of care endorsed.
--- NOTE | 2018-12-15 13:45 | NUR ---
NURSE NOTES: Performed swallow eval with pt, pt able to swallow applesauce, thick and think liquids with no coughing or difficulty, RN checked pt's mouth after each administration, no pocketing, no residual food left over, no coughing, no gurgling. RN notified Dr. Kaplan and Dr. Hedrick and asked about diet order
--- NOTE | 2018-12-15 13:50 | Internal Med Progress Note ---
Subjective Date of Service: Dec 15, 2018 Physician Name Spencer Cote Attending Physician Hubert Kaplan MD Current Medications Medications (Trade) Dose Ordered Sig/Lloyd Route PRN Reason Start Time Stop Time Status Last Admin Dose Admin Albuterol/ Ipratropium (Albuterol/ Ipratropium) 3 ml Q4H PRN HHN Shortness of Breath 12/14/18 19:15 12/19/18 19:14 Amlodipine Besylate (Norvasc) 5 mg DAILY ORAL 12/15/18 09:00 01/14/19 08:59 12/15/18 09:21 Aspirin (ASA) 81 mg DAILY ORAL 12/14/18 20:00 01/13/19 19:59 12/15/18 09:21 Ceftriaxone Sodium 1 gm/ Dextrose 55 ml @ 110 mls/hr Q24H IVPB 12/15/18 09:00 12/22/18 08:59 12/15/18 09:20 Dextrose/Sodium Chloride 1,000 ml @ 75 mls/hr [id number] IV 12/14/18 19:02 01/13/19 19:01 12/15/18 09:33 Heparin Sodium (Porcine) (Heparin 5000 units/ml) 5,000 units EVERY 12 HOURS SUBQ 12/14/18 21:00 01/13/19 20:59 Metronidazole 100 ml @ 100 mls/hr Q8HR IVPB 12/14/18 22:00 12/21/18 21:59 12/15/18 05:50 Ondansetron HCl (Zofran) 4 mg Q6H PRN IVP Nausea & Vomiting 12/14/18 16:15 01/13/19 16:14 Salmeterol Xinafoate/ Fluticasone (Advair 250/50 Diskus) 1 puffs BID INH 12/15/18 09:00 01/14/19 08:59 Theophylline (Brett-Dur) 100 mg EVERY 12 HOURS ORAL 12/15/18 09:00 01/14/19 08:59 12/15/18 09:20 Allergies: Coded Allergies: ORANGE (Verified Allergy, Mild, Skin irritation/itching, 05/30/16) PINEAPPLE (Verified Allergy, Mild, Skin irritation/itching, 05/30/16) STRAWBERRY (Verified Allergy, Mild, Skin irritation/itching, 05/30/16) ACETAMINOPHEN (Verified Allergy, Unknown, 05/29/16) CODEINE (Verified Allergy, Unknown, 05/29/16) HYDROCODONE (Verified Allergy, Unknown, 05/29/16) PENICILLIN G (Verified Allergy, Unknown, 05/29/16) ROS Limited/Unobtainable: Yes Subjective 78 YO F admitted with altered mental status and hypoglycemia. Now pneumonia. Cover for Int [place]-Dr Kaplan Objective Last Vital Signs Date Time Temp Pulse Resp B/P (MAP) Pulse Ox O2 Delivery O2 Flow Rate FiO2 12/15/18 12:00 97.5 71 18 136/69 (91) 100 12/15/18 10:52 Room Air 21 12/15/18 09:00 2.0 Laboratory Tests Test 12/15/18 07:45 12/15/18 10:15 Sodium Level 140 MMOL/L (136-145) Potassium Level 4.5 MMOL/L (3.5-5.1) Chloride Level 106 MMOL/L (98-107) Carbon Dioxide Level 24 MMOL/L (21-32) Anion Gap 11 mmol/L (5-15) Blood Urea Nitrogen 7 mg/dL (7-18) Creatinine 0.6 MG/DL (0.55-1.30) Estimat Glomerular Filtration Rate mL/min (>60) Glucose Level 82 MG/DL (74-106) Calcium Level 8.6 MG/DL (8.5-10.1) Phosphorus Level 3.9 MG/DL (2.5-4.9) Magnesium Level 1.8 MG/DL (1.8-2.4) Total Bilirubin 0.7 MG/DL (0.2-1.0) Aspartate Amino Transf (AST/SGOT) 23 U/L (15-37) Alanine Aminotransferase (ALT/SGPT) 16 U/L (12-78) Alkaline Phosphatase 71 U/L (46-116) Troponin I 0.000 ng/mL (0.000-0.056) Total Protein 7.5 G/DL (6.4-8.2) Albumin 2.7 G/DL (3.4-5.0) L Globulin 4.8 g/dL Albumin/Globulin Ratio 0.6 (1.0-2.7) L Triglycerides Level 39 MG/DL (30-150) Cholesterol Level 137 MG/DL (< 200) LDL Cholesterol 96 mg/dL (<100) HDL Cholesterol 31 MG/DL (40-60) L Cholesterol/HDL Ratio 4.4 (3.3-4.4) White Blood Count 6.0 K/UL (4.8-10.8) Red Blood Count 4.56 M/UL (4.20-5.40) Hemoglobin 12.6 G/DL (12.0-16.0) Hematocrit 39.4 % (37.0-47.0) Mean Corpuscular Volume 86 FL (80-99) Mean Corpuscular Hemoglobin 27.7 PG (27.0-31.0) Mean Corpuscular Hemoglobin Concent 32.0 G/DL (32.0-36.0) Red Cell Distribution Width 12.3 % (11.6-14.8) Platelet Count 300 K/UL (150-450) Mean Platelet Volume 7.2 FL (6.5-10.1) Neutrophils (%) (Auto) 51.2 % (45.0-75.0) Lymphocytes (%) (Auto) 30.7 % (20.0-45.0) Monocytes (%) (Auto) 7.7 % (1.0-10.0) Eosinophils (%) (Auto) 9.8 % (0.0-3.0) H Basophils (%) (Auto) 0.7 % (0.0-2.0) Intake and Output 12/14/18 12/15/18 19:00 07:00 Intake Total 120 ml Balance 120 ml Intake Oral 120 ml # Voids 1 2 Objective PHYSICAL EXAMINATION: GENERAL: The patient is awake, responsive, groggy, sleepy occasionally. HEENT: Head and neck examination, pupils are reactive to light. Extraocular movements intact. NECK: Supple. No JVD. LUNGS: Good air entry. No wheezing or rhonchi. Decreased air entry in the bases. Poor inspiratory effort. HEART: S1 and S2. Regular rhythm. No gallops . ABDOMEN: Soft, nondistended, nontender. Positive bowel sounds. EXTREMITIES: No cyanosis, clubbing, or edema. NEUROLOGIC: Cranial nerves II through XII grossly normal. Motor is 5/5 in all extremities. Gait was not assessed due to the patient's status. RECTAL: Refused and deferred. GENITOURINARY: Refused and deferred. PSYCHIATRIC: Mood and affect is intact. Assessment/Plan Assessment/Plan ASSESSMENT: 1. Altered mental status, most likely secondary to the acute CVA and chronic CVA. 2. bilateral lower lobe pneumonia 3. Hypertension. 4. COPD. 5. Hypoglycemia 6. Chronic Obstructive pulmonary dis 7. Alzheimer's dementia PLAN: 1. Admit the patient to telemetry. 2. We will follow up with the laboratory as well as 2D echo. 3. Discussed with the daughter extensively at bedside. 4. Followup with MRI of the brain. 5. Code status is Full Code. 6. Discussed with Dr. Hedrick from Pulmonary Critical Care. 7. Broad-spectrum antibiotic with Rocephin and Flagyl. 8. DVT prophylaxis with heparin subcutaneous. Spencer Cote MD Dec 15, 2018 13:50
--- NOTE | 2018-12-15 15:59 | NUR ---
NURSE NOTES: Left message for Dr. Aguilar (covering for Dr. Oconnor) regarding EKG result and asked if pt is cleared to go to Med/Surg
[2018-12-15 16:00] VITALS: BP 140/67
--- NOTE | 2018-12-15 17:12 | Consultation ---
Consult Note Consult Note NEUROLOGY CONSULTATION: Full note dictated #[id number] 78-year-old, right-handed, black lady, with past history of hypertension, dyslipidemia, COPD, fall with multiple neck fractures a few years ago followed by cognitive decline. She was apparently eating a burrito at home and her granddaughter found her unresponsive with food in her mouth. The paramedics were called and and she was found to be hypoglycemic and was taken to [facility]. Evaluation at [facility] revealed that she had an aspiration pneumonia and in addition significant cognitive dysfunction. A CT scan of the brain was performed and revealed multiple old lacunar infarcts but no acute pathology. The patient was then stabilized and transferred to [facility] to be taken care of by Dr. Kaplan. At this point in time Ms. Shabazz is significantly slow with her cerebration and cognitively impaired. She denies any weakness on one side or the other, numbness on one side or the other, problems with speech, problems with language, problems with vision, or other neurological symptoms. ON EXAMINATION: Awake but not completely alert Oriented to self only Memory: 3/3-0, 0/3-1 & 3. Unable to remember any presidents Unable to do simple mathematics Unable to do simple visual-spatial problems Speech mildly dysarthric Language anomic Cranial nerves II through XII intact except for right VII central facial paresis Motor G 5/5 except for G 4+/5 in right finger extensors and iliopsoas Sensory intact to pinprick and light touch but complains of subjective alteration over her entire left body Reflexes: 1++ on the right and 1+ on the left at the biceps triceps brachioradialis and knees. 0 at both ankles. Plantar responses flexor. Coordination: [id number] and [id number] apractic. Stance and gait could not be tested as she did not feel like getting out of bed IMPRESSION: Toxic metabolic encephalopathy related to episode of hypoglycemia and pneumonia superimposed on structural brain disease related to cerebrovascular disease and closed head trauma. RECOMMENDATIONS: Agree with management thus far Aggressive treatment of pneumonic process Make sure that blood sugars remain normal Work-up for other treatable causes of cognitive dysfunction EEG to evaluate degree and type of cerebral dysfunction Mobilize with help of physical therapy Observe closely Raul Izquierdo M.D., M.S.P.H. Raul Izquierdo MD Dec 15, 2018 17:12
--- NOTE | 2018-12-15 19:22 | NUR ---
HAND-OFF: Report given to SAMRA Espinoza.
--- NOTE | 2018-12-15 19:25 | NUR ---
NURSE NOTES: Received report from SAMRA Lam. Pt in bed, awake, resting. multiple family members at bedside, no complaints of pain, no apparent distress noted, bed in lowest position, locked, bed alarm on, call light within reach, Nasal cannula on at 2 L. IV L hand, patent and running fluids. Pt's family relayed that pt has been trying to get out of bed. Will continue to monitor pt closely.
[2018-12-15 20:00] VITALS: BP 150/74
--- NOTE | 2018-12-15 20:15 | Consultation ---
DATE OF CONSULTATION: 12/15/2018 NEUROLOGY CONSULTATION CONSULTING PHYSICIAN: Raul Izquierdo M.D. REQUESTING PHYSICIAN: Hubert Kaplan M.D. HISTORY: Ms. Meghann Shabazz is a 78-year-old, right-handed, black lady, who does have a past history of hypertension, dyslipidemia, chronic obstructive pulmonary disease, a fall with multiple neck fractures a few years ago followed by cognitive decline. She was functioning relatively well until December 13, 2018 when she was apparently eating a burrito and suddenly passed out with her mouth full of food. Her granddaughter try to revive her, but she could not arouse, the paramedics were called in and she then could be aroused, but was not very verbal and not her normal self. She was found to have a low blood sugar, which her daughter says was measured at 44. She also was having respiratory problems and when she was taken to [facility], she was told that she had a pneumonia. She was given intravenous fluids, antibiotics, stabilized, and then sent to [facility] to be taken care of by Dr. Kaplan. She, at this point, is significantly slow with her cerebration and is cognitively impoverished and impaired. She denies any weakness on one side or the other, numbness on one side or the other, problems with speech, problems with language, problems with vision, or other neurological symptoms. As per her daughters who are with her, she is definitely altered compared to her baseline with regards to her mental state. In addition, her family also tells me that since she had a fall about 2 years ago during which she fractured multiple neck vertebrae, she also was noted to have a significant decline in cognitive function. PAST MEDICAL HISTORY: Significant for high blood pressure, dyslipidemia, chronic obstructive pulmonary disease, fall with multiple neck fractures, cognitive decline, and glaucoma. FAMILY HISTORY: Both parents had diabetes mellitus. Her father of complications of diabetes. Her mother of a heart attack. PERSONAL HISTORY: Home: She lives at home with family members. 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 Habits: She used to smoke in the past, but stopped smoking numerous years ago. There is no history of tobacco or illicit drug use. MEDICATIONS AT HOME: Benazepril, Alphagan, vitamin D, famotidine, Advair, ibuprofen, albuterol nebulizer, azithromycin, Lumigan eye drops, and Medrol Dosepak. PHYSICAL EXAMINATION: GENERAL: She is a well-developed, well-nourished black lady, lying in bed, in no acute distress. VITAL SIGNS: Pulse 72/minute, blood pressure 140/67 mmHg, respirations 18/minute, temperature 98.6 degrees Fahrenheit. HEAD: Normocephalic and atraumatic. EENT: Examination benign. NECK: No neck rigidity was observed. NEUROLOGICAL EXAMINATION: MENTAL STATUS EXAMINATION: She was awake, but not completely alert. She was oriented to self only. She had no idea where she was or what the date was. She was able to recall 3/3 words immediately, but could not remember them in 1 minute and 3 minutes. She was unable to tell me who the present President was and who prior Presidents were. Her mathematical skills were impaired. Her visuospatial function was also impaired. SPEECH: She had a mild dysarthria. LANGUAGE: She had anomia for low-frequency words. CRANIAL NERVE EXAMINATION: II: The visual angeles were intact on confrontation testing. III, IV & : The external ocular movements were full and the pupils 3 mm in diameter, equal, round, regular, and reactive to light. V: She had normal facial sensations and the temporales, masseters, and pterygoids function normally. VII: She had a mild right seventh central facial paresis. VIII: She was able to hear and had no nystagmus. IX: The palate moved symmetrically on phonation. X: She had no hoarseness of voice. XI: The sternocleidomastoids and trapezii functioned normally. XII: The tongue was in the midline without any fasciculations or atrophy. MOTOR SYSTEM: The tone was normal in all four extremities. Examination of muscle mass revealed no focal wasting. Examination of power revealed G 5/5 power except for G 4+/5 power in the right finger extensors and iliopsoas. SENSORY EXAMINATION: She had intact sensations to pinprick and light touch, but complained of a subjective alteration over her entire left body. REFLEXES: 1++ on the right and 1+ on the left in the biceps, triceps, brachioradialis, knees, 0 at both ankles. The plantar responses were flexor bilaterally. COORDINATION: Chwpfz-tt-zxje and zrwo-ef-abgv testing were apractic. STANCE & GAIT: Could not be tested as she did not feel like getting out of bed. DIAGNOSTIC IMPRESSION: 1. Ms. Meghann Shabazz is a 78-year-old, right-handed, black lady, who does have a past history of hypertension, dyslipidemia, chronic obstructive pulmonary disease, falls with neck trauma, cognitive decline, and prior strokes the exact details of which she and her family cannot disclose, who was apparently eating a burrito at home and was found by her granddaughter unresponsive with food in her mouth. When the paramedics got to her, she was having respiratory problems and her blood sugar was low at 44. She was taken to [facility] where she was diagnosed with an aspiration pneumonia an she was stabilized and then sent to [facility]. 2. At this point in time, she is slow with her cerebration and cognitively impaired, but denies any other neurological symptoms. 3. On neurological examination, at this time, she is not completely alert. She is oriented to self only. She has significant problems with recent and remote memory, visuospatial function, higher cognitive function, and language. She has a right seventh central facial paresis, right hemiparesis, globally diminished deep tendon reflexes that are brisker on the right side compared to the left, bilateral upper and lower extremity apraxia, and she refuses to stand and walk because she does not feel like. 4. Laboratory tests obtained at [facility] revealed a relatively normal chemistry panel except for an albumin that is low at 2.7 and a normal CBC. 5. An MRI scan of the brain performed on December 14, 2018 revealed atrophy, deep white matter changes, and chronic lacunar infarcts in the basal ganglia bilaterally, caudate nucleus on the right, the lentiform nucleus on the left, and in the left cerebellar area. 6. 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 RECOMMENDATIONS: 1. Agree with management thus far. 2. Aggressive treatment of the patient's pneumonic process. 3. We should ascertain that her blood sugars remain within normal range. 4. She should be worked up thoroughly for other treatable causes of cognitive dysfunction. 5. An EEG will be ordered to evaluate the patient for the degree and type of cerebral dysfunction. 6. She should be mobilized with the help of physical therapy. 7. She should be observed closely and depending on how she fares, further recommendations will be given. Thank you for entrusting me with the care of Ms. Shabazz. I shall follow her with you. Raul Izquierdo M.D., M.S.P.H. DR: RAMIN JOB#: [id number] MTDD
[2018-12-16] VITALS: BP 125/82
[2018-12-16 04:00] VITALS: BP 137/66
--- NOTE | 2018-12-16 06:54 | NUR ---
NURSE NOTES: Received report from SAMRA Espinoza. Pt in bed, awake, talkative, eating breakfast, family at bedside, pt is A/Ox1 this am to self, discussed plan of care with pt and family, no apparent distress noted, bed in lowest position, call light within reach.
--- NOTE | 2018-12-16 07:03 | NUR ---
HAND-OFF: Report given to SAMRA Lam.
[2018-12-16 07:42] LABS: BASOPHILS % (AUTO) 1.3 % (0.0-2.0); EOSINOPHILS % (AUTO) 9.4 % (0.0-3.0); HEMATOCRIT 38.5 % (37.0-47.0); HEMOGLOBIN 12.7 G/DL (12.0-16.0); LYMPHOCYTES % (AUTO) 27.9 % (20.0-45.0); MEAN CORPUSCULAR VOLUME 85 FL (80-99); MONOCYTES % (AUTO) 7.5 % (1.0-10.0); PLATELET COUNT 268 K/UL (150-450); RED BLOOD COUNT 4.55 M/UL (4.20-5.40); RED CELL DISTRIBUTION WIDTH 11.1 % (11.6-14.8); WHITE BLOOD COUNT 5.6 K/UL (4.8-10.8)
[2018-12-16 08:00] VITALS: BP 128/59
[2018-12-16 08:13] LABS: ANION GAP 9 mmol/L (5-15); BLOOD UREA NITROGEN 4 mg/dL (7-18); CALCIUM 8.7 MG/DL (8.5-10.1); CARBON DIOXIDE 26 MMOL/L (21-32); CHLORIDE 105 MMOL/L (98-107); CREATININE 0.7 MG/DL (0.55-1.30); POTASSIUM 3.6 MMOL/L (3.5-5.1); SODIUM 140 MMOL/L (136-145)
[2018-12-16] MEDS: Wixela 250/50 Inhaler - 60 dose INH SCH ×2 (08:47→20:03)
[2018-12-16] MEDS: Heparin 5000 units/ml inj SUBQ SCH ×2 (09:00→21:31)
[2018-12-16] MEDS: cefTRIAXone 1 GM in D5W 55 ML IVPB SCH (09:29)
[2018-12-16] MEDS: Theophylline ER 100mg ORAL SCH ×2 (09:29→21:23)
[2018-12-16] MEDS: Aspirin Baby 81mg ORAL SCH (09:29)
[2018-12-16] MEDS: D5 1/2NS 1,000 ML IV SCH (11:02)
[2018-12-16 12:00] VITALS: BP 137/65
--- NOTE | 2018-12-16 14:42 | Neurology Progress Note ---
Interim History Interim History Interim History Ms. Shabazz feels better today. Both she and family feel that her mind is clear. She feels generally stronger. She continues to be cognitively impoverished. Her cerebration is fasted today but still not normal. She has not noticed any new neurological symptoms. She has also been breathing well. Review of Systems Neuro Review of Systems Benign. Objective Physical Exam Last Vital Signs Date Time Temp Pulse Resp B/P (MAP) Pulse Ox O2 Delivery O2 Flow Rate FiO2 12/16/18 12:00 98.1 72 18 137/65 (89) 99 12/16/18 08:52 Nasal Cannula 2.0 28 Laboratory Tests Test 12/16/18 06:38 White Blood Count 5.6 K/UL (4.8-10.8) Red Blood Count 4.55 M/UL (4.20-5.40) Hemoglobin 12.7 G/DL (12.0-16.0) Hematocrit 38.5 % (37.0-47.0) Mean Corpuscular Volume 85 FL (80-99) Mean Corpuscular Hemoglobin 27.9 PG (27.0-31.0) Mean Corpuscular Hemoglobin Concent 32.9 G/DL (32.0-36.0) Red Cell Distribution Width 11.1 % (11.6-14.8) L Platelet Count 268 K/UL (150-450) Mean Platelet Volume 7.0 FL (6.5-10.1) Neutrophils (%) (Auto) 54.0 % (45.0-75.0) Lymphocytes (%) (Auto) 27.9 % (20.0-45.0) Monocytes (%) (Auto) 7.5 % (1.0-10.0) Eosinophils (%) (Auto) 9.4 % (0.0-3.0) H Basophils (%) (Auto) 1.3 % (0.0-2.0) Sodium Level 140 MMOL/L (136-145) Potassium Level 3.6 MMOL/L (3.5-5.1) Chloride Level 105 MMOL/L (98-107) Carbon Dioxide Level 26 MMOL/L (21-32) Anion Gap 9 mmol/L (5-15) Blood Urea Nitrogen 4 mg/dL (7-18) L Creatinine 0.7 MG/DL (0.55-1.30) Estimat Glomerular Filtration Rate mL/min (>60) Glucose Level 105 MG/DL (74-106) Calcium Level 8.7 MG/DL (8.5-10.1) Magnesium Level 1.7 MG/DL (1.8-2.4) L Troponin I 0.000 ng/mL (0.000-0.056) Pro-B-Type Natriuretic Peptide 76 pg/mL (0-125) Vitamin D 25-Hydroxy Pending 25-Hydroxy Vitamin D2 Pending 25-Hydroxy Vitamin D3 Pending Rapid Plasma Reagin Pending Neurologic Exam Objective PHYSICAL EXAMINATION: GENERAL: She is a well-developed, well-nourished black lady, lying in bed, in no acute distress. HEAD: Normocephalic and atraumatic. EENT: Examination benign. NECK: No neck rigidity was observed. NEUROLOGICAL EXAMINATION: MENTAL STATUS EXAMINATION: She was awake, and more alert. She was oriented to self only. She had no idea where she was or what the date was. She was able to recall 3/3 words immediately, but could not remember them in 1 minute and 3 minutes. She was unable to tell me who the present President was and who prior Presidents were. Her mathematical skills were impaired. Her visuospatial function was also impaired. SPEECH: She had a mild dysarthria. LANGUAGE: She had anomia for low-frequency words. CRANIAL NERVE EXAMINATION: II: The visual angeles were intact on confrontation testing. III, IV & : The external ocular movements were full and the pupils 3 mm in diameter, equal, round, regular, and reactive to light. V: She had normal facial sensations and the temporales, masseters, and pterygoids function normally. VII: She had a mild right seventh central facial paresis. VIII: She was able to hear and had no nystagmus. IX: The palate moved symmetrically on phonation. X: She had no hoarseness of voice. XI: The sternocleidomastoids and trapezii functioned normally. XII: The tongue was in the midline without any fasciculations or atrophy. MOTOR SYSTEM: The tone was normal in all four extremities. Examination of muscle mass revealed no focal wasting. Examination of power revealed G 5/5 power except for G 5-/5 power in the right finger extensors and iliopsoas. SENSORY EXAMINATION: She had intact sensations to pinprick and light touch, but complained of a subjective alteration over her entire left body. REFLEXES: 1++ on the right and 1+ on the left in the biceps, triceps, brachioradialis, knees, 0 at both ankles. The plantar responses were flexor bilaterally. COORDINATION: Ffwdkl-jw-hfhx and lsmd-nx-hcji testing were apractic. STANCE & GAIT: Could not be tested as she did not feel like getting out of bed. Impression/Recommendations Diagnostic Impression 1. Ms. Meghann Shabazz is a 78-year-old, right-handed, black lady, who does have a past history of hypertension, dyslipidemia, chronic obstructive pulmonary disease, falls with neck trauma, cognitive decline, and prior strokes the exact details of which she and her family cannot disclose, who was apparently eating a burrito at home and was found by her granddaughter unresponsive with food in her mouth. When the paramedics got to her, she was having respiratory problems and her blood sugar was low at 44. She was taken to [facility] where she was diagnosed with an aspiration pneumonia an she was stabilized and then sent to [facility]. 2. She feels better today. Both she and family feel that her mind is clear. She feels generally stronger. She continues to be cognitively impoverished. Her cerebration is fasted today but still not normal. She has not noticed any new neurological symptoms. She has also been breathing well. 3. On neurological examination, at this time, she is awake and alert. She is oriented to self only. She has significant problems with recent and remote memory, visuospatial function, higher cognitive function, and language. She has a right seventh central facial paresis, right hemiparesis - which has improved, globally diminished deep tendon reflexes that are brisker on the right side compared to the left, bilateral upper and lower extremity apraxia, and she refuses to stand and walk because she does not feel like. 4. Laboratory tests obtained at [facility] revealed a relatively normal chemistry panel except for an albumin that is low at 2.7 and a normal CBC. 5. Further laboratory tests have revealed a normal B12 level, normal folate level, normal TSH, normal hemoglobin A1c. 6. An MRI scan of the brain performed on December 14, 2018 revealed atrophy, deep white matter changes, and chronic lacunar infarcts in the basal ganglia bilaterally, caudate nucleus on the right, the lentiform nucleus on the left, and in the left cerebellar area. 7. 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 The patient's neurological function is slightly better today. Recommendations 1. The patient and her family were given an explanation of the above-mentioned findings. 2. Continue present management. 3. Aggressive treatment of the patient's pneumonic process. 4. We should ascertain that her blood sugars remain within normal range. 5. Await EEG to evaluate for the degree and type of cerebral dysfunction. 6. Mobilize with the help of physical therapy. 7. Observe closely. Raul Izquierdo M.D., M.S.P.HRaul Daniels MD Dec 16, 2018 14:42
--- NOTE | 2018-12-16 15:33 | Internal Med Progress Note ---
Subjective Date of Service: Dec 16, 2018 Physician Name Spencer Cote Attending Physician Hubert Kaplan MD Current Medications Medications (Trade) Dose Ordered Sig/Lloyd Route PRN Reason Start Time Stop Time Status Last Admin Dose Admin Albuterol/ Ipratropium (Albuterol/ Ipratropium) 3 ml Q4H PRN HHN Shortness of Breath 12/14/18 19:15 12/19/18 19:14 Amlodipine Besylate (Norvasc) 5 mg DAILY ORAL 12/15/18 09:00 01/14/19 08:59 12/16/18 09:29 Aspirin (ASA) 81 mg DAILY ORAL 12/14/18 20:00 01/13/19 19:59 12/16/18 09:29 Ceftriaxone Sodium 1 gm/ Dextrose 55 ml @ 110 mls/hr Q24H IVPB 12/15/18 09:00 12/22/18 08:59 12/16/18 09:29 Heparin Sodium (Porcine) (Heparin 5000 units/ml) 5,000 units EVERY 12 HOURS SUBQ 12/14/18 21:00 01/13/19 20:59 12/16/18 09:00 Metronidazole 100 ml @ 100 mls/hr Q8HR IVPB 12/14/18 22:00 12/21/18 21:59 12/16/18 05:36 Ondansetron HCl (Zofran) 4 mg Q6H PRN IVP Nausea & Vomiting 12/14/18 16:15 01/13/19 16:14 Salmeterol Xinafoate/ Fluticasone (Advair 250/50 Diskus) 1 puffs BID INH 12/15/18 09:00 01/14/19 08:59 12/16/18 08:47 Theophylline (Brett-Dur) 100 mg EVERY 12 HOURS ORAL 12/15/18 09:00 01/14/19 08:59 12/16/18 09:29 Allergies: Coded Allergies: ORANGE (Verified Allergy, Mild, Skin irritation/itching, 05/30/16) PINEAPPLE (Verified Allergy, Mild, Skin irritation/itching, 05/30/16) STRAWBERRY (Verified Allergy, Mild, Skin irritation/itching, 05/30/16) ACETAMINOPHEN (Verified Allergy, Unknown, 05/29/16) CODEINE (Verified Allergy, Unknown, 05/29/16) HYDROCODONE (Verified Allergy, Unknown, 05/29/16) PENICILLIN G (Verified Allergy, Unknown, 05/29/16) ROS Limited/Unobtainable: No Constitutional: Reports: no symptoms HEENT: Reports: no symptoms Cardiovascular: Reports: no symptoms Respiratory: Reports: no symptoms Gastrointestinal/Abdominal: Reports: no symptoms Genitourinary: Reports: no symptoms Neurologic/Psychiatric: Reports: no symptoms Subjective 78 YO F admitted with altered mental status and hypoglycemia. Now pneumonia. Cover for Int [place]-Dr Kaplan Objective Last Vital Signs Date Time Temp Pulse Resp B/P (MAP) Pulse Ox O2 Delivery O2 Flow Rate FiO2 12/16/18 12:00 98.1 72 18 137/65 (89) 99 12/16/18 08:52 Nasal Cannula 2.0 28 Laboratory Tests Test 12/16/18 06:38 White Blood Count 5.6 K/UL (4.8-10.8) Red Blood Count 4.55 M/UL (4.20-5.40) Hemoglobin 12.7 G/DL (12.0-16.0) Hematocrit 38.5 % (37.0-47.0) Mean Corpuscular Volume 85 FL (80-99) Mean Corpuscular Hemoglobin 27.9 PG (27.0-31.0) Mean Corpuscular Hemoglobin Concent 32.9 G/DL (32.0-36.0) Red Cell Distribution Width 11.1 % (11.6-14.8) L Platelet Count 268 K/UL (150-450) Mean Platelet Volume 7.0 FL (6.5-10.1) Neutrophils (%) (Auto) 54.0 % (45.0-75.0) Lymphocytes (%) (Auto) 27.9 % (20.0-45.0) Monocytes (%) (Auto) 7.5 % (1.0-10.0) Eosinophils (%) (Auto) 9.4 % (0.0-3.0) H Basophils (%) (Auto) 1.3 % (0.0-2.0) Sodium Level 140 MMOL/L (136-145) Potassium Level 3.6 MMOL/L (3.5-5.1) Chloride Level 105 MMOL/L (98-107) Carbon Dioxide Level 26 MMOL/L (21-32) Anion Gap 9 mmol/L (5-15) Blood Urea Nitrogen 4 mg/dL (7-18) L Creatinine 0.7 MG/DL (0.55-1.30) Estimat Glomerular Filtration Rate mL/min (>60) Glucose Level 105 MG/DL (74-106) Calcium Level 8.7 MG/DL (8.5-10.1) Magnesium Level 1.7 MG/DL (1.8-2.4) L Troponin I 0.000 ng/mL (0.000-0.056) Pro-B-Type Natriuretic Peptide 76 pg/mL (0-125) Vitamin D 25-Hydroxy Pending 25-Hydroxy Vitamin D2 Pending 25-Hydroxy Vitamin D3 Pending Rapid Plasma Reagin Pending Intake and Output 12/15/18 12/16/18 19:00 07:00 Intake Total 300 ml Balance 300 ml Other 300 ml # Voids 13 Objective PHYSICAL EXAMINATION: GENERAL: The patient is awake, responsive, groggy, sleepy occasionally. HEENT: Head and neck examination, pupils are reactive to light. Extraocular movements intact. NECK: Supple. No JVD. LUNGS: Good air entry. No wheezing or rhonchi. Decreased air entry in the bases. Poor inspiratory effort. HEART: S1 and S2. Regular rhythm. No gallops . ABDOMEN: Soft, nondistended, nontender. Positive bowel sounds. EXTREMITIES: No cyanosis, clubbing, or edema. NEUROLOGIC: Cranial nerves II through XII grossly normal. Motor is 5/5 in all extremities. Gait was not assessed due to the patient's status. RECTAL: Refused and deferred. GENITOURINARY: Refused and deferred. PSYCHIATRIC: Mood and affect is intact. Assessment/Plan Assessment/Plan ASSESSMENT: 1. Altered mental status, most likely secondary to the acute CVA and chronic CVA. 2. bilateral lower lobe pneumonia 3. Hypertension. 4. COPD. 5. Hypoglycemia 6. Chronic Obstructive pulmonary dis 7. Alzheimer's dementia PLAN: 1. Admit the patient to telemetry. 2. We will follow up with the laboratory as well as 2D echo. 3. Discussed with the daughter extensively at bedside. 4. Followup with MRI of the brain. 5. Code status is Full Code. 6. Discussed with Dr. Hedrick from Pulmonary Critical Care. 7. Broad-spectrum antibiotic with Rocephin and Flagyl. 8. DVT prophylaxis with heparin subcutaneous. Spencer Cote MD Dec 16, 2018 15:33
--- NOTE | 2018-12-16 15:45 | NUR ---
NURSE NOTES: Administered Flagyl to pt at 1545 as pt was getting EEG done
--- NOTE | 2018-12-16 15:48 | Consultation ---
Consult Note Consult Note Cardiology for Dr. Oconnor Full note dictated #[id number] Christina Aguilar MD Dec 16, 2018 15:48
[2018-12-16 16:00] VITALS: BP 142/70
--- NOTE | 2018-12-16 16:00 | NUR ---
NURSE NOTES: EKG results was given to Dr. Oconnor. No new orders at this time.
--- NOTE | 2018-12-16 16:23 | Pulmonolgy Critical Care Note ---
Critical Care - Asmt/Plan Problems: (1) Aspiration pneumonia (2) Hypertension (3) COPD (chronic obstructive pulmonary disease) (4) Alzheimer's dementia (5) History of CVA (cerebrovascular accident) Respiratory: monitor respiratory rate, adjust FIO2, CXR Cardiac: continue to monitor HR/BP Renal: F/U I&O Infectious Disease: check cultures, continue antibiotics Gastrointestinal: continue feedings/current rate Hematologic: transfuse if hgb<8.5 Neurologic: PRN Morphine, keep patient comfortable Affect: PRN ativan Critical Care - Objective Last 24 Hour Vital Signs Date Time Temp Pulse Resp B/P (MAP) Pulse Ox O2 Delivery O2 Flow Rate FiO2 12/16/18 12:00 98.1 72 18 137/65 (89) 99 12/16/18 11:30 77 12/16/18 09:29 92 128/59 12/16/18 08:52 98 Nasal Cannula 2.0 28 12/16/18 08:07 Nasal Cannula 2.0 12/16/18 08:00 97.7 79 18 128/59 (82) 92 12/16/18 07:52 77 12/16/18 04:00 77 12/16/18 04:00 98.7 80 18 137/66 (89) 98 12/16/18 00:12 95 18 96 Nasal Cannula 2.0 28 12/16/18 00:00 76 12/16/18 00:00 98.4 80 18 125/82 (96) 97 12/15/18 23:12 Room Air 21 12/15/18 23:12 Room Air 21 12/15/18 21:00 Nasal Cannula 2.0 12/15/18 21:00 95 Nasal Cannula 2.0 28 12/15/18 20:19 18 12/15/18 20:17 98 18 99 Nasal Cannula 2.0 28 12/15/18 20:00 98.9 84 18 150/74 (99) 98 12/15/18 20:00 83 Status: awake Condition: improving HEENT: atraumatic Lungs: rhonchi Heart: HR/BP stable Abdomen: soft, active bowel sounds Extremities: no C/C/E Critical Care - Subjective ROS Limited/Unobtainable: Yes EKG Rhythm: Sinus Rhythm FI02: 28 Sputum Amount: None I&O: Intake and Output 12/15/18 12/16/18 19:00 07:00 Intake Total 300 ml Balance 300 ml Other 300 ml # Voids 13 Gloria Hedrick MD Dec 16, 2018 16:23
--- NOTE | 2018-12-16 19:34 | NUR ---
HAND-OFF: Report given to SAMRA Castanon.
--- NOTE | 2018-12-16 19:35 | NUR ---
NURSE NOTES: Received report from SAMRA Lam. Patient is awake, lying in semi riley's; resting comfortably. A/Ox2. Denies pain at this time. No signs of acute distress noted. Checked IV site and flushed. No erythema, bleeding or infiltration noted. Bed at lowest position, brakes on, [id number]. Call light within reach. Will continue to monitor.
--- NOTE | 2018-12-16 19:45 | Consultation ---
DATE OF CONSULTATION: 12/16/2018 CARDIOLOGY CONSULTATION This is a Cardiology consultation being done as coverage for Dr. Oconnor. REASON FOR CONSULTATION: Syncope. HISTORY OF PRESENT ILLNESS: History was obtained primarily from the chart and family members as the patient has dementia and is a very limited historian. The patient is a 78-year-old woman with a history of hypertension, COPD, remote history of tobacco use (discontinued 25 years ago), previous CVAs and dementia, who initially was brought to [facility] three days ago following an episode of syncope at home. Per the patient's family, she had been eating lunch and became suddenly unresponsive. She was brought to [facility] by paramedics. Workup there included an x-ray showing bilateral pulmonary infiltrates felt due to pneumonia. She was subsequently transferred to [facility] for insurance reasons. She is currently awake, alert without any complaints. She has no recollection of what happened to her and does not know that she is in the hospital. Workup so far has included telemetry monitoring showing sinus rhythm and an echo which showed normal left ventricular function, ejection fraction 60% to 65%, mild left ventricular hypertrophy, and no significant valve lesions. MEDICATIONS: Currently ceftriaxone 1 g IV q.24 hours, Norvasc 5 mg daily, Advair Diskus one puff b.i.d., Brett-Dur 100 mg q.12 hours, Flagyl q.8 h, subcutaneous heparin 5000 units q.12 hours, aspirin 81 mg daily, DuoNeb p.r.n., Zofran p.r.n. ALLERGIES: Penicillin, codeine, and hydrocodone. PAST MEDICAL HISTORY: As noted above. SOCIAL HISTORY: The patient has a remote history of tobacco use, but has not smoked in over 25 years. She has no history of alcohol abuse. PHYSICAL EXAMINATION: VITAL SIGNS: Blood pressure is 135/65, pulse 72 and regular, respirations 18, and afebrile. GENERAL: Alert, elderly appearing woman, in no acute distress. HEENT: Normocephalic and atraumatic. Pupils are equal, round, and reactive to light. Sclerae anicteric. Oral mucosa are moist. NECK: Supple. There is no jugular venous distention. Carotid pulses are 2+ bilaterally without bruits. LUNGS: There are bilateral rhonchi over the lower field. HEART: Regular S1, S2 with a 1/6 systolic ejection murmur at the lower left sternal border. No S3 or S4. ABDOMEN: Soft, nontender. No palpable mass. EXTREMITIES: The patient moves all extremities symmetrically. She is oriented to person only. Gait, not assessed. LABORATORY DATA: Hemoglobin , white blood count 5600, and platelets 268,000. Sodium 140, potassium 3.6, chloride 105, bicarbonate 26, BUN 4, creatinine 0.7. Troponin 0. Hemoglobin A1c 5.6. Magnesium 1.7. TSH 0.47. EKG is pending. Telemetry has shown normal sinus rhythm. Chest x-ray shows some predominantly right lower lung infiltrate, also infiltrate at the left lower lung and possible small bilateral pleural effusions. Brain MRI showed small chronic basal ganglia and left cerebellar infarct, no acute process. ASSESSMENTS AND RECOMMENDATIONS: The patient is a 78-year-old woman with hypertension, COPD, and dementia, who suffered a syncopal episode while at home a few days ago. The cause of the episode is uncertain. She has not had any significant arrhythmias on telemetry and has no evidence for an acute coronary syndrome. Her ventricular function is normal by echo, no significant valvular lesions. She may have had orthostatic hypotension in the setting of a pneumonia or alternatively could have had a primary neurologic event, seizure. She is to undergo an EEG. We would continue telemetry monitoring. We will check orthostatic vital signs and continue her current medications including antibiotics and bronchodilators for the treatment of pneumonia. Further recommendations will be made based on her clinical course. Dr. Oconnor will continue to follow her when she returns on 12/17/2018. including antibiotics for possible pneumonia. She is being evaluated by Neurology. EEG is pending. Dr. Oconnor will continue to follow her for cardiac issues starting 12/17/2018. Christina Aguilar M.D. DR: Mg JOB#: [id number] CC:
[2018-12-16 20:00] VITALS: BP 143/70
[2018-12-17] VITALS: BP 141/64
--- NOTE | 2018-12-17 01:58 | NUR ---
NURSE NOTES: Resting throughout the night. No significant change of condition noted. Will continue to monitor.
[2018-12-17 04:00] VITALS: BP 147/77
--- NOTE | 2018-12-17 07:20 | NUR ---
HAND-OFF: Report given to SAMRA Baires. Plan of care endorsed.
[2018-12-17 07:55] LABS: BASOPHILS % (AUTO) 1.4 % (0.0-2.0); EOSINOPHILS % (AUTO) 9.7 % (0.0-3.0); HEMATOCRIT 37.6 % (37.0-47.0); HEMOGLOBIN 12.3 G/DL (12.0-16.0); LYMPHOCYTES % (AUTO) 24.5 % (20.0-45.0); MEAN CORPUSCULAR VOLUME 86 FL (80-99); MONOCYTES % (AUTO) 6.9 % (1.0-10.0); NEUTROPHILS % (AUTO) 57.4 % (45.0-75.0); PLATELET COUNT 285 K/UL (150-450); RED BLOOD COUNT 4.38 M/UL (4.20-5.40); RED CELL DISTRIBUTION WIDTH 11.2 % (11.6-14.8); WHITE BLOOD COUNT 5.8 K/UL (4.8-10.8)
[2018-12-17 08:00] VITALS: BP 140/70
[2018-12-17 08:09] LABS: ANION GAP 5 mmol/L (5-15); BLOOD UREA NITROGEN 5 mg/dL (7-18); CALCIUM 8.8 MG/DL (8.5-10.1); CARBON DIOXIDE 26 MMOL/L (21-32); CHLORIDE 106 MMOL/L (98-107); CREATININE 0.7 MG/DL (0.55-1.30); POTASSIUM 3.7 MMOL/L (3.5-5.1); SODIUM 137 MMOL/L (136-145)
--- NOTE | 2018-12-17 08:13 | NUR ---
NURSE NOTES: Patient stable AOx2 with no s/sx of pain or distress. RR even and unlabored on 2L NC. Bed low and locked. Eating breakfast in bed. Leads placed back on. Patient wearing her glasses. Will continue to monitor.
[2018-12-17] MEDS: Wixela 250/50 Inhaler - 60 dose INH SCH ×2 (09:12→19:49)
[2018-12-17] MEDS: Theophylline ER 100mg ORAL SCH ×2 (09:23→21:53)
[2018-12-17] MEDS: Aspirin Baby 81mg ORAL SCH (09:23)
[2018-12-17] MEDS: cefTRIAXone 1 GM in D5W 55 ML IVPB SCH (09:24)
[2018-12-17] MEDS: Heparin 5000 units/ml inj SUBQ SCH ×2 (09:34→21:54)
--- NOTE | 2018-12-17 11:00 | Pulmonology Progress Note ---
Assessment/Plan Problems: (1) Aspiration pneumonia (2) Acute encephalopathy (3) COPD (chronic obstructive pulmonary disease) (4) Hypertension (5) History of CVA (cerebrovascular accident) (6) Alzheimer's dementia Assessment/Plan CT chest pending EEG done last night, results are pending check sputum\ monitor BP echo reviewed, normal LV function. Subjective ROS Limited/Unobtainable: No Interval Events: no new complains Allergies: Coded Allergies: ORANGE (Verified Allergy, Mild, Skin irritation/itching, 05/30/16) PINEAPPLE (Verified Allergy, Mild, Skin irritation/itching, 05/30/16) STRAWBERRY (Verified Allergy, Mild, Skin irritation/itching, 05/30/16) ACETAMINOPHEN (Verified Allergy, Unknown, 05/29/16) CODEINE (Verified Allergy, Unknown, 05/29/16) HYDROCODONE (Verified Allergy, Unknown, 05/29/16) PENICILLIN G (Verified Allergy, Unknown, 05/29/16) Objective Last 24 Hour Vital Signs Date Time Temp Pulse Resp B/P (MAP) Pulse Ox O2 Delivery O2 Flow Rate FiO2 12/17/18 09:23 76 140/70 12/17/18 09:14 94 Nasal Cannula 2.0 28 12/17/18 09:00 Nasal Cannula 2.0 12/17/18 08:00 97.7 76 18 140/70 (93) 97 12/17/18 04:00 96.6 90 17 147/77 (100) 96 12/17/18 04:00 89 12/17/18 00:00 76 12/17/18 00:00 96.8 88 16 141/64 (89) 99 12/16/18 21:00 Nasal Cannula 2.0 12/16/18 21:00 88 92 100 12/16/18 20:03 94 Nasal Cannula 2.0 28 12/16/18 20:00 96.1 86 17 143/70 (94) 99 12/16/18 20:00 77 12/16/18 16:00 98.2 77 18 142/70 (94) 98 12/16/18 15:43 81 12/16/18 12:00 98.1 72 18 137/65 (89) 99 12/16/18 11:30 77 Intake and Output 12/16/18 12/17/18 19:00 07:00 Intake Total 960 ml 120 ml Balance 960 ml 120 ml Intake Oral 960 ml 120 ml # Voids 7 1 General Appearance: WD/WN HEENT: normocephalic, atraumatic Respiratory/Chest: chest wall non-tender, lungs clear Breasts: no masses Cardiovascular: normal rate Abdomen: normal bowel sounds, soft, non tender Extremities: no cyanosis Skin: no rash Laboratory Tests 12/17/18 06:56: White Blood Count 5.8, Red Blood Count 4.38, Hemoglobin 12.3, Hematocrit 37.6, Mean Corpuscular Volume 86, Mean Corpuscular Hemoglobin 28.0, Mean Corpuscular Hemoglobin Concent 32.6, Red Cell Distribution Width 11.2L, Platelet Count 285, Mean Platelet Volume 6.6, Neutrophils (%) (Auto) 57.4, Lymphocytes (%) (Auto) 24.5, Monocytes (%) (Auto) 6.9, Eosinophils (%) (Auto) 9.7H, Basophils (%) (Auto ) 1.4, Sodium Level 137, Potassium Level 3.7, Chloride Level 106, Carbon Dioxide Level 26, Anion Gap 5, Blood Urea Nitrogen 5L, Creatinine 0.7, Estimat Glomerular Filtration Rate , Glucose Level 100, Calcium Level 8.8 Current Medications Medications (Trade) Dose Ordered Sig/Lloyd Route PRN Reason Start Time Stop Time Status Last Admin Dose Admin Albuterol/ Ipratropium (Albuterol/ Ipratropium) 3 ml Q4H PRN HHN Shortness of Breath 12/14/18 19:15 12/19/18 19:14 Amlodipine Besylate (Norvasc) 5 mg DAILY ORAL 12/15/18 09:00 01/14/19 08:59 12/17/18 09:23 Aspirin (ASA) 81 mg DAILY ORAL 12/14/18 20:00 01/13/19 19:59 12/17/18 09:23 Ceftriaxone Sodium 1 gm/ Dextrose 55 ml @ 110 mls/hr Q24H IVPB 12/15/18 09:00 12/22/18 08:59 12/17/18 09:24 Heparin Sodium (Porcine) (Heparin 5000 units/ml) 5,000 units EVERY 12 HOURS SUBQ 12/14/18 21:00 01/13/19 20:59 12/17/18 09:34 Metronidazole 100 ml @ 100 mls/hr Q8HR IVPB 12/14/18 22:00 12/21/18 21:59 12/17/18 06:11 Ondansetron HCl (Zofran) 4 mg Q6H PRN IVP Nausea & Vomiting 12/14/18 16:15 01/13/19 16:14 Salmeterol Xinafoate/ Fluticasone (Advair 250/50 Diskus) 1 puffs BID INH 12/15/18 09:00 01/14/19 08:59 12/17/18 09:12 Theophylline (Brett-Dur) 100 mg EVERY 12 HOURS ORAL 12/15/18 09:00 01/14/19 08:59 12/17/18 09:23 Gloria Hedrick MD Dec 17, 2018 11:00
--- NOTE | 2018-12-17 11:32 | NUR ---
SWALLOW/SPEECH THERAPY NOTES: REFERRED FOR SWALLOW EVALUATION BY DR BALDWIN, SEE FULL REPORT IN [facility] ACTIVITY SECTION. DYSPHAGIA RISK FACTORS FOR THIS 78 Y.O. RIGHT-HAND DOMINANT AA FEMALE: ACUTE ISSUES: BILATERAL ASPIRATION PNA AND LUNG INFILTRATES, HYPOGLYCEMIA PASSED OUT WHEN EATING BURRITO (HAD FOOD IN MOUTH). MRI BRAIN NEGATIVE ACUTE PROBLEMS HAS OLD SMALL CHRONIC BILATERAL BASAL GANGLIA AND L CEREBELLAR INFARCTS. R CAUDATE NUCLEUS CT HEAD 12/14/18 NEG ACUTE OLD PROBABLE LACUNAR INFARCTS BASAL GANGLIA AND RIGHT THALAMUS AND WHITE MATTER ISCHEMIC CHANGES, BRAIN ATROPHY. EEG ABNORMAL (SEE NEURO REPORT), AND 2 LITERS O2 NC RR 16-18. H/O CVAS (3 LAST IN 2002 HAS DYSARTHRIA RESOLVED NOW, HAS MEMORY PROBLEMS ONLY PER DTR), DEMENTIA (COGNITIVE DECLINE A FEW YEARS AGO), COPD, BRONCHITIS, ASTHMA, SMOKING TOBACCO (1PPD) FOR 20 YEARS AND QUIT IN 2002 WHEN SHE HAD THE LAST STROKE. POLST/AD NONE IN CHART REGARDING TUBE FEEDING PREFERENCES. AT HOME ON REGULAR TEXTURE DIET AND THIN LIQUIDS W/O SWALLOWING PROBLEMS PER DTR AND PT. NOW ON A SOFT CHEW DIET AND THIN LIQUIDS WITH 50-75% INTAKE NO OVERT ASPIRATION. PER RN, ABLE TO TAKE MEDS WHOLE WITH WATER W/O OVERT ASPIRATION. ALERT AND ABLE TO EXPRESS BASIC NEEDS AND DENY SHE HAD SWALLOWING PROBLEMS. PER DTR SHE HAS MEMORY PROBLEMS. GROSSLY FUNCTIONAL VOICE/COUGH/LIP/TONGUE SKILLS. INITIAL IMPRESSIONS: S/S OF AT LEAST A MILD ORAL PREP DYSPHAGIA SHE HAS SLOWER CHEWING OF MASTICATED SOLIDS (1/2 CRACKER) ? PREMORBID CHEWING RATE 15 SECONDS, FAIR HYOLARYNGEAL EXCURSION, NO ORAL RESIDUE AND NO OVERT ASPIRATION. (UPPER/LOWER DENTURES). GIVEN TSP PUREED, GROSSLY FUNCTIONAL SWALLOW W/O ORAL RESIDUE AND NO OVERT ASPIRATION. GIVEN THIN LIQUIDS VIA STRAW SEQUENTIAL SIPS (3 0Z WATER STEPHEN SWALLOW PROTOCOL), NO OVERT ASPIRATION BUT NEEDED TO TAKE A BREATH AFTER DRINKING HALF OF THE AMOUNT. (HAS COPD AND ASTHMA ON 2 LITERS 02 NC) HAS SILENT ASPIRATION RISK DUE TO H/O CVAS AND DEMENTIA ASPIRATION RISK ALSO HIGHER GIVEN COPD/ASTHMA HX WHICH CAN CAUSE RESPIRATORY INCOORDINATION WITH SWALLOWING. FAIR INTAKE RECOMMENDATIONS: SINCE PATIENT DISLIKES DIET DOWNGRADES, CONTINUE WITH CURRENT SOFT CHEW DIET AND THIN LIQUIDS WITH POSTED ASPIRATION PRECAUTIONS AND ASSISST NEEDED TO CUT SOLID FOODS (DTR SAYS SOMEONE IS ALWAYS HERE TO HELP HER) CONSIDER R/O SILENT ASPIRATION (GIVEN CURRENT PNA) AND COMPLETING A MODIFIED BARIUM SWALLOW STUDY IP OR OP IF DC WHICH IS ALSO HELPFUL IN PICKING UP SUBTLE SWALLOW PROBLEMS AND ALLOWS FOR TRIAL TX TECHNIQUES IF NEEDED. EDUCATED/TRAINED RN (HEIDI) AND FIRE EXTINGUISHER INSTALLER (BRITTNI) IN POSTED PRECAUTIONS. SKILLED DYSPHAGIA MANAGEMENT AND TX IF NEEDS AND COG-COM EVAL/TX FOR RECENT MEMORY SKILLS MOSTLY.
[2018-12-17 12:00] VITALS: BP 128/70
--- NOTE | 2018-12-17 13:57 | Cardiology Report ---
APPROVED REPORT EKG Measurement Heart [id number] WI 174P [id number] Normal sinus rhythm Right ventricular hypertrophy Anterolateral infarct, age undetermined Abnormal ECG
--- NOTE | 2018-12-17 13:58 | Cardiology Report ---
APPROVED REPORT EKG Measurement Heart [id number] Normal sinus rhythm Incomplete right bundle branch block, plus right ventricular hypertrophy Anterolateral infarct, age undetermined Abnormal ECG
--- NOTE | 2018-12-17 14:04 | NUR ---
NURSE NOTES: Patient back from CT. Nazia parker.
--- NOTE | 2018-12-17 15:53 | NUR ---
P.T NOTE: P.T EVALUATION COMPLETED AND TREATMENT INITIATED. PLEASE REFER TO P.T EVALUATION FOR CURRENT FUNCTIONAL STATUS. SKILLED P.T SERVICE IS WARRANTED TO IMPROVE STRENGTH , BALANCE AND ENDURANCE TO INCREASE FUNCTIONAL MOBILITY INDEPENDENCE AND SAFETY DURING STAY. THANK YOU FOR THIS REFERRAL.
[2018-12-17 16:00] VITALS: BP 120/60
--- NOTE | 2018-12-17 17:18 | Diagnostic Imaging Report ---
Clinical Indication: Shortness of breath, evaluation of abnormal chest radiographic findings Technique: IV administration nonionic contrast. Spiral acquisition obtained through the chest. Multiplanar reconstructions generated. Total dose length product 177 mGycm. CTDIvol(s) 13, 27, 837 mGy. Dose reduction achieved using automated exposure control Comparison: 06/14/[address] Findings: There is extensive interstitial septal thickening and honeycombing and bronchiectasis involving the entirety of the right lower lobe, nearly the entirety of the left lower lobe, and significant portions of the upper lobes, right greater than left in the upper lobes. There has been significant progression of disease since the prior study, particularly in the right upper lobe. Previously demonstrated bulla in the medial anterior lingula is no longer visualized. No effusions, dense consolidation, masses, or nodules are demonstrated. The right and left main pulmonary arteries each measure 28 mm in diameter. There is again demonstrated mediastinal lymphadenopathy, with the largest node being a right paratracheal node which measures 23 x 16 mm. This appears to have increased in size since the previous study. Innumerable nodular densities in the anterior mediastinal fat probably represent residual thymic tissue. The thyroid demonstrates asymmetric enlargement of left lobe with one or more nodules with calcifications. There is a sliding-type hiatal hernia again demonstrated.. The heart size is normal. No definite pericardial effusion. No axillary or chest wall mass or adenopathy demonstrated. The bones are unremarkable. The included upper abdominal anatomy is unremarkable. Impression: Evidence of progressive pulmonary fibrosis, with extensive honeycombing as described which has increased in extent since previous study of 2017, particularly on the right. No definite acute abnormality Ectatic pulmonary arteries, suggestive of but not diagnostic for pulmonary arterial hypertension, also previously described Mediastinal lymphadenopathy, slightly increased since prior study of 06/14/2016. Nonspecific as regards etiology Hiatal hernia The CT scanner at [facility] is accredited by the [employer] and the scans are performed using protocols designed to limit radiation exposure to as low as reasonably achievable to attain images of sufficient resolution adequate for diagnostic evaluation.
--- NOTE | 2018-12-17 18:39 | Internal Med Progress Note ---
Subjective Date of Service: Dec 17, 2018 Physician Name Spencer Cote Attending Physician Hubert Kaplan MD Current Medications Medications (Trade) Dose Ordered Sig/Lloyd Route PRN Reason Start Time Stop Time Status Last Admin Dose Admin Albuterol/ Ipratropium (Albuterol/ Ipratropium) 3 ml Q4H PRN HHN Shortness of Breath 12/14/18 19:15 12/19/18 19:14 Amlodipine Besylate (Norvasc) 5 mg DAILY ORAL 12/15/18 09:00 01/14/19 08:59 12/17/18 09:23 Aspirin (ASA) 81 mg DAILY ORAL 12/14/18 20:00 01/13/19 19:59 12/17/18 09:23 Ceftriaxone Sodium 1 gm/ Dextrose 55 ml @ 110 mls/hr Q24H IVPB 12/15/18 09:00 12/22/18 08:59 12/17/18 09:24 Heparin Sodium (Porcine) (Heparin 5000 units/ml) 5,000 units EVERY 12 HOURS SUBQ 12/14/18 21:00 01/13/19 20:59 12/17/18 09:34 Metronidazole (Flagyl) 500 mg Q8HR ORAL 12/17/18 22:00 12/21/18 21:59 Ondansetron HCl (Zofran) 4 mg Q6H PRN IVP Nausea & Vomiting 12/14/18 16:15 01/13/19 16:14 Salmeterol Xinafoate/ Fluticasone (Advair 250/50 Diskus) 1 puffs BID INH 12/15/18 09:00 01/14/19 08:59 12/17/18 09:12 Theophylline (Brett-Dur) 100 mg EVERY 12 HOURS ORAL 12/15/18 09:00 01/14/19 08:59 12/17/18 09:23 Allergies: Coded Allergies: ORANGE (Verified Allergy, Mild, Skin irritation/itching, 05/30/16) PINEAPPLE (Verified Allergy, Mild, Skin irritation/itching, 05/30/16) STRAWBERRY (Verified Allergy, Mild, Skin irritation/itching, 05/30/16) ACETAMINOPHEN (Verified Allergy, Unknown, 05/29/16) CODEINE (Verified Allergy, Unknown, 05/29/16) HYDROCODONE (Verified Allergy, Unknown, 05/29/16) PENICILLIN G (Verified Allergy, Unknown, 05/29/16) ROS Limited/Unobtainable: Yes Subjective 78 YO F admitted with altered mental status and hypoglycemia. Now pneumonia. Cover for Int [place]-Dr Kaplan Objective Last Vital Signs Date Time Temp Pulse Resp B/P (MAP) Pulse Ox O2 Delivery O2 Flow Rate FiO2 12/17/18 16:00 98.5 74 18 120/60 (80) 100 12/17/18 09:14 Nasal Cannula 2.0 28 Laboratory Tests Test 12/17/18 06:56 White Blood Count 5.8 K/UL (4.8-10.8) Red Blood Count 4.38 M/UL (4.20-5.40) Hemoglobin 12.3 G/DL (12.0-16.0) Hematocrit 37.6 % (37.0-47.0) Mean Corpuscular Volume 86 FL (80-99) Mean Corpuscular Hemoglobin 28.0 PG (27.0-31.0) Mean Corpuscular Hemoglobin Concent 32.6 G/DL (32.0-36.0) Red Cell Distribution Width 11.2 % (11.6-14.8) L Platelet Count 285 K/UL (150-450) Mean Platelet Volume 6.6 FL (6.5-10.1) Neutrophils (%) (Auto) 57.4 % (45.0-75.0) Lymphocytes (%) (Auto) 24.5 % (20.0-45.0) Monocytes (%) (Auto) 6.9 % (1.0-10.0) Eosinophils (%) (Auto) 9.7 % (0.0-3.0) H Basophils (%) (Auto) 1.4 % (0.0-2.0) Sodium Level 137 MMOL/L (136-145) Potassium Level 3.7 MMOL/L (3.5-5.1) Chloride Level 106 MMOL/L (98-107) Carbon Dioxide Level 26 MMOL/L (21-32) Anion Gap 5 mmol/L (5-15) Blood Urea Nitrogen 5 mg/dL (7-18) L Creatinine 0.7 MG/DL (0.55-1.30) Estimat Glomerular Filtration Rate mL/min (>60) Glucose Level 100 MG/DL (74-106) Calcium Level 8.8 MG/DL (8.5-10.1) Intake and Output 12/16/18 12/17/18 19:00 07:00 Intake Total 960 ml 120 ml Balance 960 ml 120 ml Intake Oral 960 ml 120 ml # Voids 7 1 Objective PHYSICAL EXAMINATION: GENERAL: The patient is awake, responsive, groggy, sleepy occasionally. HEENT: Head and neck examination, pupils are reactive to light. Extraocular movements intact. NECK: Supple. No JVD. LUNGS: Good air entry. No wheezing or rhonchi. Decreased air entry in the bases. Poor inspiratory effort. HEART: S1 and S2. Regular rhythm. No gallops . ABDOMEN: Soft, nondistended, nontender. Positive bowel sounds. EXTREMITIES: No cyanosis, clubbing, or edema. NEUROLOGIC: Cranial nerves II through XII grossly normal. Motor is 5/5 in all extremities. Gait was not assessed due to the patient's status. RECTAL: Refused and deferred. GENITOURINARY: Refused and deferred. PSYCHIATRIC: Mood and affect is intact. Assessment/Plan Assessment/Plan ASSESSMENT: 1. Altered mental status, most likely secondary to the acute CVA and chronic CVA. 2. bilateral lower lobe pneumonia, aspiration 3. Hypertension. 4. COPD. 5. Hypoglycemia 6. Chronic Obstructive pulmonary dis 7. Alzheimer's dementia PLAN: 1. Admit the patient to telemetry. 2. We will follow up with the laboratory as well as 2D echo. 3. Discussed with the daughter extensively at bedside. 4. MRI of the brain=no acute infarct 5. Code status is Full Code. 6. Discussed with Dr. Hedrick from Pulmonary Critical Care. 7. Broad-spectrum antibiotic with Rocephin and Flagyl. 8. DVT prophylaxis with heparin subcutaneous. 9. Neurology=Spencer Doe MD Dec 17, 2018 18:39
--- NOTE | 2018-12-17 19:32 | Neurology Progress Note ---
Interim History Interim History Interim History Ms. Shabazz feels well. Both she and family feel that her mind is clearer. She however wants to remove her manager cardiac cath. She feels generally stronger. She continues to be cognitively impoverished. Her cerebration is faster today but still not normal. She has not noticed any new neurological symptoms. She has been breathing well. Her appetite is fair. She however does not like the hospital food. Review of Systems Neuro Review of Systems Benign. Objective Physical Exam Last Vital Signs Date Time Temp Pulse Resp B/P (MAP) Pulse Ox O2 Delivery O2 Flow Rate FiO2 12/17/18 16:00 98.5 74 18 120/60 (80) 100 12/17/18 09:14 Nasal Cannula 2.0 28 Laboratory Tests Test 12/17/18 06:56 White Blood Count 5.8 K/UL (4.8-10.8) Red Blood Count 4.38 M/UL (4.20-5.40) Hemoglobin 12.3 G/DL (12.0-16.0) Hematocrit 37.6 % (37.0-47.0) Mean Corpuscular Volume 86 FL (80-99) Mean Corpuscular Hemoglobin 28.0 PG (27.0-31.0) Mean Corpuscular Hemoglobin Concent 32.6 G/DL (32.0-36.0) Red Cell Distribution Width 11.2 % (11.6-14.8) L Platelet Count 285 K/UL (150-450) Mean Platelet Volume 6.6 FL (6.5-10.1) Neutrophils (%) (Auto) 57.4 % (45.0-75.0) Lymphocytes (%) (Auto) 24.5 % (20.0-45.0) Monocytes (%) (Auto) 6.9 % (1.0-10.0) Eosinophils (%) (Auto) 9.7 % (0.0-3.0) H Basophils (%) (Auto) 1.4 % (0.0-2.0) Sodium Level 137 MMOL/L (136-145) Potassium Level 3.7 MMOL/L (3.5-5.1) Chloride Level 106 MMOL/L (98-107) Carbon Dioxide Level 26 MMOL/L (21-32) Anion Gap 5 mmol/L (5-15) Blood Urea Nitrogen 5 mg/dL (7-18) L Creatinine 0.7 MG/DL (0.55-1.30) Estimat Glomerular Filtration Rate mL/min (>60) Glucose Level 100 MG/DL (74-106) Calcium Level 8.8 MG/DL (8.5-10.1) Neurologic Exam Objective PHYSICAL EXAMINATION: GENERAL: She is a well-developed, well-nourished black lady, lying in bed, in no acute distress. HEAD: Normocephalic and atraumatic. EENT: Examination benign. NECK: No neck rigidity was observed. NEUROLOGICAL EXAMINATION: MENTAL STATUS EXAMINATION: She was awake, and more alert. She was oriented to self only. She had no idea where she was or what the date was. She was able to recall 3/3 words immediately, but could not remember them in 1 minute and 3 minutes. She was unable to tell me who the present President was and who prior Presidents were. Her mathematical skills were impaired. Her visuospatial function was also impaired. SPEECH: She had a mild dysarthria. LANGUAGE: She had anomia for low-frequency words. CRANIAL NERVE EXAMINATION: II: The visual angeles were intact on confrontation testing. III, IV & : The external ocular movements were full and the pupils 3 mm in diameter, equal, round, regular, and reactive to light. V: She had normal facial sensations and the temporales, masseters, and pterygoids function normally. VII: She had a mild right seventh central facial paresis. VIII: She was able to hear and had no nystagmus. IX: The palate moved symmetrically on phonation. X: She had no hoarseness of voice. XI: The sternocleidomastoids and trapezii functioned normally. XII: The tongue was in the midline without any fasciculations or atrophy. MOTOR SYSTEM: The tone was normal in all four extremities. Examination of muscle mass revealed no focal wasting. Examination of power revealed G 5/5 power except for G 5-/5 power in the right finger extensors and iliopsoas. SENSORY EXAMINATION: She had intact sensations to pinprick and light touch, but complained of a subjective alteration over her entire left body. REFLEXES: 1++ on the right and 1+ on the left in the biceps, triceps, brachioradialis, knees, 0 at both ankles. The plantar responses were flexor bilaterally. COORDINATION: [id number] and wtos-eq-iydk testing were apractic. STANCE & GAIT: Could not be tested as she did not feel like getting out of bed. Impression/Recommendations Diagnostic Impression 1. Ms. Meghann Shabazz is a 78-year-old, right-handed, black lady, who does have a past history of hypertension, dyslipidemia, chronic obstructive pulmonary disease, falls with neck trauma, cognitive decline, and prior strokes the exact details of which she and her family cannot disclose, who was apparently eating a burrito at home and was found by her granddaughter unresponsive with food in her mouth. When the paramedics got to her, she was having respiratory problems and her blood sugar was low at 44. She was taken to [facility] where she was diagnosed with an aspiration pneumonia an she was stabilized and then sent to [facility]. 2. She feels well. Both she and family feel that her mind is clearer. She however wants to remove her manager cardiac cath. She continues to be cognitively impoverished. Her cerebration is faster today but still not normal. She has not noticed any new neurological symptoms. She has been breathing well. Her appetite is fair. She however does not like the hospital food. 3. On neurological examination, at this time, she is awake and alert. She is oriented to self only. She has significant problems with recent and remote memory, visuospatial function, higher cognitive function, and language. She has a right seventh central facial paresis, right hemiparesis - which has improved, globally diminished deep tendon reflexes that are brisker on the right side compared to the left, bilateral upper and lower extremity apraxia, and she refuses to stand and walk because she does not feel like it. 4. Laboratory tests obtained at [facility] revealed a relatively normal chemistry panel except for an albumin that is low at 2.7 and a normal CBC. 5. Further laboratory tests have revealed a normal B12 level, normal folate level, normal TSH, normal hemoglobin A1c. 6. An MRI scan of the brain performed on December 14, 2018 revealed atrophy, deep white matter changes, and chronic lacunar infarcts in the basal ganglia bilaterally, caudate nucleus on the right, the lentiform nucleus on the left, and in the left cerebellar area. 7. 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 The patient's neurological function is slightly better today. Recommendations 1. The patient and her family were given an explanation of the above-mentioned findings. 2. Continue present management. 3. Aggressive treatment of the patient's pneumonic process. 4. We should ascertain that her blood sugars remain within normal range. 5. Will review EEG. 6. Mobilize with the help of physical therapy. 7. Observe closely. Raul Izquierdo M.D., M.S.P.H. Raul Izquierdo MD Dec 17, 2018 19:32
--- NOTE | 2018-12-17 19:35 | NUR ---
NURSE NOTES: Received pt and report from SAMRA Joyner. Observed pt resting in bed with both eyes open and watching television with family member at bedside. Pt is A/Ox2. bus monitor is in placed, IV site intact, asymptomatic, and patent. Bed is in the lowest position and locked. Call light within reach. No signs/symptoms of acute distress noted at this time. Will continue plan of care.
--- NOTE | 2018-12-17 19:42 | NUR ---
CASE MANAGEMENT: REVIEW 78Y/FEMALE BIBA FROM HOME TO [facility] LATER TRANSFERRED CC: ALOC . GLUCOSE 44 SI: HYPOGLYCEMIA . BILATERAL LOWER LOBE ASPIRATION PNA T 97.7 HR 69 RR 18 BP 149/69 SAT 98% ROOM AIR GLUCOSE 105 IS: D5 NS IVF BOLUS X1 ROCEPHIN IV PATIENT ADMITTED TO TELEMETRY UNIT 12/14/2018 DCP: PATIENT IS FROM HOME
--- NOTE | 2018-12-17 19:44 | NUR ---
HAND-OFF: Report given to Josey Charlton. Patient stable.
[2018-12-17 20:00] VITALS: BP 131/70
--- NOTE | 2018-12-17 20:48 | Cardiology Progress Note ---
Assessment/Plan Assessment/Plan hypertension, COPD dementia syncopal episode metabolic encephalopathy possible pneumonia cvas ? chronic pulm fibrosis tele reviewed no sig arrhythmias noted echo good lv fucntion mri note ct noted echo noted she removed her iv grd dtr at bedside discussed Subjective Cardiovascular: Denies: chest pain, lightheadedness, palpitations Respiratory: Denies: shortness of breath Gastrointestinal/Abdominal: Denies: abdominal pain Objective Last 24 Hour Vital Signs Date Time Temp Pulse Resp B/P (MAP) Pulse Ox O2 Delivery O2 Flow Rate FiO2 12/17/18 19:50 95 Nasal Cannula 2.0 28 12/17/18 16:00 98.5 74 18 120/60 (80) 100 12/17/18 16:00 77 12/17/18 12:00 69 12/17/18 12:00 97.2 75 18 128/70 (89) 100 12/17/18 09:23 76 140/70 12/17/18 09:14 94 Nasal Cannula 2.0 28 12/17/18 09:00 Nasal Cannula 2.0 12/17/18 09:00 77 75 80 12/17/18 08:00 97.7 76 18 140/70 (93) 97 12/17/18 08:00 84 12/17/18 04:00 96.6 90 17 147/77 (100) 96 12/17/18 04:00 89 12/17/18 00:00 76 12/17/18 00:00 96.8 88 16 141/64 (89) 99 12/16/18 21:00 Nasal Cannula 2.0 12/16/18 21:00 88 92 100 General Appearance: no apparent distress, alert Neck: supple Cardiovascular: normal rate Respiratory/Chest: rhonchi - bilaterally Abdomen: normal bowel sounds, non tender, soft Extremities: no swelling Intake and Output 12/16/18 12/17/18 19:00 07:00 Intake Total 960 ml 120 ml Balance 960 ml 120 ml Intake Oral 960 ml 120 ml # Voids 7 1 Laboratory Tests Test 12/17/18 06:56 White Blood Count 5.8 K/UL (4.8-10.8) Red Blood Count 4.38 M/UL (4.20-5.40) Hemoglobin 12.3 G/DL (12.0-16.0) Hematocrit 37.6 % (37.0-47.0) Mean Corpuscular Volume 86 FL (80-99) Mean Corpuscular Hemoglobin 28.0 PG (27.0-31.0) Mean Corpuscular Hemoglobin Concent 32.6 G/DL (32.0-36.0) Red Cell Distribution Width 11.2 % (11.6-14.8) L Platelet Count 285 K/UL (150-450) Mean Platelet Volume 6.6 FL (6.5-10.1) Neutrophils (%) (Auto) 57.4 % (45.0-75.0) Lymphocytes (%) (Auto) 24.5 % (20.0-45.0) Monocytes (%) (Auto) 6.9 % (1.0-10.0) Eosinophils (%) (Auto) 9.7 % (0.0-3.0) H Basophils (%) (Auto) 1.4 % (0.0-2.0) Sodium Level 137 MMOL/L (136-145) Potassium Level 3.7 MMOL/L (3.5-5.1) Chloride Level 106 MMOL/L (98-107) Carbon Dioxide Level 26 MMOL/L (21-32) Anion Gap 5 mmol/L (5-15) Blood Urea Nitrogen 5 mg/dL (7-18) L Creatinine 0.7 MG/DL (0.55-1.30) Estimat Glomerular Filtration Rate mL/min (>60) Glucose Level 100 MG/DL (74-106) Calcium Level 8.8 MG/DL (8.5-10.1) Tino Oconnor MD Dec 17, 2018 20:48
[2018-12-17] MEDS: metroNIDAZOLE 500mg tab ORAL SCH (21:53)
[2018-12-18] VITALS: BP 121/60
--- NOTE | 2018-12-18 01:15 | Electroencephalogram ---
DATE OF PROCEDURE: 12/16/2018 REQUESTING PHYSICIAN: Hubert Kaplan M.D. READING PHYSICIAN: Raul Izquierdo M.D. PROCEDURE PERFORMED: Electroencephalogram. HISTORY: This EEG was performed on a 78-year-old lady with a history of multiple medical problems, who has had prior cerebral vascular events of a subcortical nature and in addition has had a decline in cognitive function. The purpose of this EEG was to evaluate the patient for the degree and type of cerebral dysfunction. TECHNICAL NOTE: This EEG was performed on a [employer] with electrodes placed on the scalp according to the International 10-20 system. [id number] and uaaad-zp-[id number] montages were used. The EEG was technically satisfactory and was performed in the awake and drowsy states. OBSERVATIONS: In the best awake state, the background activity consisted of 8-9 Hz alpha activity with intermixed theta frequencies. Drowsiness was characterized by slowing of the background in the 5-6 Hz theta range. No definite focal abnormalities or epileptiform discharges were seen. IMPRESSION: This is an abnormal EEG characterized by an unusually large amount of intermixed theta activity seen in the reportedly awake state. COMMENT: This study is consistent with an encephalopathy of a mild degree. Raul Izquierdo M.D., M.S.P.H. DR: KAYLA/CECELIA JOB#: [id number] MTDD
[2018-12-18 04:00] VITALS: BP 131/71
[2018-12-18] MEDS: metroNIDAZOLE 500mg tab ORAL SCH ×2 (05:50→14:41)
[2018-12-18 07:18] LABS: BASOPHILS % (AUTO) 1.1 % (0.0-2.0); EOSINOPHILS % (AUTO) 12.1 % (0.0-3.0); HEMATOCRIT 37.5 % (37.0-47.0); HEMOGLOBIN 12.3 G/DL (12.0-16.0); LYMPHOCYTES % (AUTO) 29.5 % (20.0-45.0); MEAN CORPUSCULAR VOLUME 85 FL (80-99); MONOCYTES % (AUTO) 7.4 % (1.0-10.0); NEUTROPHILS % (AUTO) 50.1 % (45.0-75.0); PLATELET COUNT 287 K/UL (150-450); RED BLOOD COUNT 4.39 M/UL (4.20-5.40); RED CELL DISTRIBUTION WIDTH 12.7 % (11.6-14.8)
[2018-12-18 07:44] LABS: ALANINE AMINOTRANSFERASE 22 U/L (12-78); ALBUMIN 2.6 G/DL (3.4-5.0); ALBUMIN/GLOBULIN RATIO 0.5 (1.0-2.7); ALKALINE PHOSPHATASE 66 U/L (46-116); ANION GAP 8 mmol/L (5-15); ASPARTATE AMINO TRANSFERASE 38 U/L (15-37); BILIRUBIN,TOTAL 0.5 MG/DL (0.2-1.0); BLOOD UREA NITROGEN 5 mg/dL (7-18); CALCIUM 9.3 MG/DL (8.5-10.1); CARBON DIOXIDE 27 MMOL/L (21-32); CHLORIDE 107 MMOL/L (98-107); CREATININE 0.8 MG/DL (0.55-1.30); SODIUM 141 MMOL/L (136-145)
--- NOTE | 2018-12-18 07:51 | NUR ---
RADIOLOGY DEPT., CHEST X-RAY DONE.-P.DYE
[2018-12-18 08:00] VITALS: BP 119/59
--- NOTE | 2018-12-18 08:03 | NUR ---
HAND-OFF: Report given to SAMRA Head. Plan of care endorsed.
--- NOTE | 2018-12-18 08:37 | Diagnostic Imaging Report ---
Indication: Cough Technique: One view of the chest Comparison: 12/15/2018 Findings: Bilateral interstitial and airspace opacities are probably not significantly changed. No definite effusions. Normal heart Impression: Essentially unchanged bilateral interstitial and airspace opacities, demonstrated on recent chest CT to largely represent chronic interstitial fibrosis
[2018-12-18] MEDS: Aspirin Baby 81mg ORAL SCH (08:50)
[2018-12-18] MEDS: cefTRIAXone 1 GM in D5W 55 ML IVPB SCH (08:50)
[2018-12-18] MEDS: Theophylline ER 100mg ORAL SCH (08:50)
[2018-12-18] MEDS: Heparin 5000 units/ml inj SUBQ SCH (09:00)
[2018-12-18] MEDS: Wixela 250/50 Inhaler - 60 dose INH SCH (09:03)
--- NOTE | 2018-12-18 10:44 | NUR ---
NURSE NOTES: Per Dr. Hedrick, Pt. to be discharged today. Family made aware.
--- NOTE | 2018-12-18 10:45 | NUR ---
NURSE NOTES: Reduced NC to 1L, saturating 96. Denies any SOB.
[2018-12-18] MEDS ORDERED: NORVASC5 MG ORAL (11:49)
--- NOTE | 2018-12-18 11:52 | Pulmonology Progress Note ---
Assessment/Plan Problems: (1) Pulmonary fibrosis (2) Aspiration pneumonia (3) Acute encephalopathy (4) COPD (chronic obstructive pulmonary disease) (5) Hypertension (6) History of CVA (cerebrovascular accident) (7) Alzheimer's dementia Assessment/Plan CT chest reviewed, chronic and extensive pulmonary fibrosis, worse than a study done a few years ago. EEG done last night, results are pending check sputum\ monitor BP echo reviewed, normal LV function. Subjective ROS Limited/Unobtainable: No Constitutional: Reports: no symptoms HEENT: Repors: no symptoms Allergies: Coded Allergies: ORANGE (Verified Allergy, Mild, Skin irritation/itching, 05/30/16) PINEAPPLE (Verified Allergy, Mild, Skin irritation/itching, 05/30/16) STRAWBERRY (Verified Allergy, Mild, Skin irritation/itching, 05/30/16) ACETAMINOPHEN (Verified Allergy, Unknown, 05/29/16) CODEINE (Verified Allergy, Unknown, 05/29/16) HYDROCODONE (Verified Allergy, Unknown, 05/29/16) PENICILLIN G (Verified Allergy, Unknown, 05/29/16) Objective Last 24 Hour Vital Signs Date Time Temp Pulse Resp B/P (MAP) Pulse Ox O2 Delivery O2 Flow Rate FiO2 12/18/18 09:05 99 Nasal Cannula 1.0 24 12/18/18 09:00 Nasal Cannula 1.0 12/18/18 08:50 76 119/59 12/18/18 08:00 98.3 76 18 119/59 (79) 97 12/18/18 08:00 78 12/18/18 04:00 98.0 73 18 131/71 (91) 97 12/18/18 04:00 73 12/18/18 00:00 83 12/18/18 00:00 97.9 80 16 121/60 (80) 98 12/17/18 21:00 Nasal Cannula 2.0 12/17/18 20:00 88 12/17/18 20:00 97.7 83 17 131/70 (90) 96 12/17/18 20:00 88 90 98 12/17/18 19:50 95 Nasal Cannula 2.0 28 12/17/18 16:00 98.5 74 18 120/60 (80) 100 12/17/18 16:00 77 12/17/18 12:00 69 12/17/18 12:00 97.2 75 18 128/70 (89) 100 Intake and Output 12/17/18 12/18/18 19:00 07:00 Intake Total 885 ml Balance 885 ml Intake Oral 730 ml IV Total 155 ml # Voids 3 1 General Appearance: WD/WN Respiratory/Chest: chest wall non-tender, lungs clear Cardiovascular: normal rate, regular rhythm Genitourinary: normal external genitalia Extremities: no clubbing Neurologic/Psychiatric: clinical biochemical geneticist II-XII grossly normal Laboratory Tests 12/18/18 06:40: White Blood Count 5.0, Red Blood Count 4.39, Hemoglobin 12.3, Hematocrit 37.5, Mean Corpuscular Volume 85, Mean Corpuscular Hemoglobin 28.0, Mean Corpuscular Hemoglobin Concent 32.8, Red Cell Distribution Width 12.7, Platelet Count 287, Mean Platelet Volume 6.6, Neutrophils (%) (Auto) 50.1, Lymphocytes (%) (Auto) 29.5, Monocytes (%) (Auto) 7.4, Eosinophils (%) (Auto) 12.1H, Basophils (%) ( Auto) 1.1, Sodium Level 141, Potassium Level 4.0, Chloride Level 107, Carbon Dioxide Level 27, Anion Gap 8, Blood Urea Nitrogen 5L, Creatinine 0.8, Estimat Glomerular Filtration Rate , Glucose Level 97, Calcium Level 9.3, Total Bilirubin 0.5, Aspartate Amino Transf (AST/SGOT) 38H, Alanine Aminotransferase ( ALT/SGPT) 22, Alkaline Phosphatase 66, Pro-B-Type Natriuretic Peptide 47, Total Protein 7.7, Albumin 2.6L, Globulin 5.1, Albumin/Globulin Ratio 0.5L Current Medications Medications (Trade) Dose Ordered Sig/Lloyd Route PRN Reason Start Time Stop Time Status Last Admin Dose Admin Albuterol/ Ipratropium (Albuterol/ Ipratropium) 3 ml Q4H PRN HHN Shortness of Breath 12/14/18 19:15 12/19/18 19:14 Amlodipine Besylate (Norvasc) 5 mg DAILY ORAL 12/15/18 09:00 01/14/19 08:59 12/18/18 08:50 Aspirin (ASA) 81 mg DAILY ORAL 12/14/18 20:00 01/13/19 19:59 12/18/18 08:50 Ceftriaxone Sodium 1 gm/ Dextrose 55 ml @ 110 mls/hr Q24H IVPB 12/15/18 09:00 12/22/18 08:59 12/18/18 08:50 Heparin Sodium (Porcine) (Heparin 5000 units/ml) 5,000 units EVERY 12 HOURS SUBQ 12/14/18 21:00 01/13/19 20:59 12/17/18 21:54 Metronidazole (Flagyl) 500 mg Q8HR ORAL 12/17/18 22:00 12/21/18 21:59 12/18/18 05:50 Ondansetron HCl (Zofran) 4 mg Q6H PRN IVP Nausea & Vomiting 12/14/18 16:15 01/13/19 16:14 Salmeterol Xinafoate/ Fluticasone (Advair 250/50 Diskus) 1 puffs BID INH 12/15/18 09:00 01/14/19 08:59 12/18/18 09:03 Theophylline (Brett-Dur) 100 mg EVERY 12 HOURS ORAL 12/15/18 09:00 01/14/19 08:59 12/18/18 08:50 Gloria Hedrick MD Dec 18, 2018 11:52
[2018-12-18 12:00] VITALS: BP 122/68
--- NOTE | 2018-12-18 12:20 | NUR ---
NURSE NOTES: Pt. in RA. Saturating 94-96%. Denies SOB. Will continue to monitor.
[2018-12-18] MEDS ORDERED: Flu Vac High-Dose for Pts 65 Years and Older IM ONE (14:30)
--- NOTE | 2018-12-18 16:07 | Cardiology Progress Note ---
Assessment/Plan Assessment/Plan hypertension, COPD dementia syncopal episode metabolic encephalopathy possible pneumonia cvas ? chronic pulm fibrosis tele reviewed no sig arrhythmias noted echo good lv function mri note ct noted echo noted she removed her iv lst nteid family at bedside dc tele ok to med surg Subjective Cardiovascular: Denies: chest pain, lightheadedness, palpitations Respiratory: Denies: shortness of breath Gastrointestinal/Abdominal: Denies: abdominal pain Genitourinary: Denies: burning Objective Last 24 Hour Vital Signs Date Time Temp Pulse Resp B/P (MAP) Pulse Ox O2 Delivery O2 Flow Rate FiO2 12/18/18 12:00 98.2 80 18 122/68 (86) 98 12/18/18 12:00 69 12/18/18 09:05 99 Nasal Cannula 1.0 24 12/18/18 09:00 Nasal Cannula 1.0 12/18/18 09:00 71 80 60 12/18/18 08:50 76 119/59 12/18/18 08:00 98.3 76 18 119/59 (79) 97 12/18/18 08:00 78 12/18/18 04:00 98.0 73 18 131/71 (91) 97 12/18/18 04:00 73 12/18/18 00:00 83 12/18/18 00:00 97.9 80 16 121/60 (80) 98 12/17/18 21:00 Nasal Cannula 2.0 12/17/18 20:00 88 12/17/18 20:00 97.7 83 17 131/70 (90) 96 12/17/18 20:00 88 90 98 12/17/18 19:50 95 Nasal Cannula 2.0 28 General Appearance: no apparent distress, alert Neck: supple Cardiovascular: normal rate Respiratory/Chest: other - bilateral crakles Abdomen: normal bowel sounds, non tender, soft Extremities: no swelling Intake and Output 12/17/18 12/18/18 19:00 07:00 Intake Total 885 ml Balance 885 ml Intake Oral 730 ml IV Total 155 ml # Voids 3 1 Laboratory Tests Test 12/18/18 06:40 White Blood Count 5.0 K/UL (4.8-10.8) Red Blood Count 4.39 M/UL (4.20-5.40) Hemoglobin 12.3 G/DL (12.0-16.0) Hematocrit 37.5 % (37.0-47.0) Mean Corpuscular Volume 85 FL (80-99) Mean Corpuscular Hemoglobin 28.0 PG (27.0-31.0) Mean Corpuscular Hemoglobin Concent 32.8 G/DL (32.0-36.0) Red Cell Distribution Width 12.7 % (11.6-14.8) Platelet Count 287 K/UL (150-450) Mean Platelet Volume 6.6 FL (6.5-10.1) Neutrophils (%) (Auto) 50.1 % (45.0-75.0) Lymphocytes (%) (Auto) 29.5 % (20.0-45.0) Monocytes (%) (Auto) 7.4 % (1.0-10.0) Eosinophils (%) (Auto) 12.1 % (0.0-3.0) H Basophils (%) (Auto) 1.1 % (0.0-2.0) Sodium Level 141 MMOL/L (136-145) Potassium Level 4.0 MMOL/L (3.5-5.1) Chloride Level 107 MMOL/L (98-107) Carbon Dioxide Level 27 MMOL/L (21-32) Anion Gap 8 mmol/L (5-15) Blood Urea Nitrogen 5 mg/dL (7-18) L Creatinine 0.8 MG/DL (0.55-1.30) Estimat Glomerular Filtration Rate mL/min (>60) Glucose Level 97 MG/DL (74-106) Calcium Level 9.3 MG/DL (8.5-10.1) Total Bilirubin 0.5 MG/DL (0.2-1.0) Aspartate Amino Transf (AST/SGOT) 38 U/L (15-37) H Alanine Aminotransferase (ALT/SGPT) 22 U/L (12-78) Alkaline Phosphatase 66 U/L (46-116) Pro-B-Type Natriuretic Peptide 47 pg/mL (0-125) Total Protein 7.7 G/DL (6.4-8.2) Albumin 2.6 G/DL (3.4-5.0) L Globulin 5.1 g/dL Albumin/Globulin Ratio 0.5 (1.0-2.7) L Tino Oconnor MD Dec 18, 2018 16:07
--- NOTE | 2018-12-18 16:50 | Internal Med Progress Note ---
Subjective Date of Service: Dec 18, 2018 Physician Name Spencer Cote Attending Physician Hubert Kaplan MD Current Medications Medications (Trade) Dose Ordered Sig/Lloyd Route PRN Reason Start Time Stop Time Status Last Admin Dose Admin Albuterol/ Ipratropium (Albuterol/ Ipratropium) 3 ml Q4H PRN HHN Shortness of Breath 12/14/18 19:15 12/19/18 19:14 Amlodipine Besylate (Norvasc) 5 mg DAILY ORAL 12/15/18 09:00 01/14/19 08:59 12/18/18 08:50 Aspirin (ASA) 81 mg DAILY ORAL 12/14/18 20:00 01/13/19 19:59 12/18/18 08:50 Ceftriaxone Sodium 1 gm/ Dextrose 55 ml @ 110 mls/hr Q24H IVPB 12/15/18 09:00 12/22/18 08:59 12/18/18 08:50 Heparin Sodium (Porcine) (Heparin 5000 units/ml) 5,000 units EVERY 12 HOURS SUBQ 12/14/18 21:00 01/13/19 20:59 12/17/18 21:54 Metronidazole (Flagyl) 500 mg Q8HR ORAL 12/17/18 22:00 12/21/18 21:59 12/18/18 14:41 Ondansetron HCl (Zofran) 4 mg Q6H PRN IVP Nausea & Vomiting 12/14/18 16:15 01/13/19 16:14 Salmeterol Xinafoate/ Fluticasone (Advair 250/50 Diskus) 1 puffs BID INH 12/15/18 09:00 01/14/19 08:59 12/18/18 09:03 Theophylline (Brett-Dur) 100 mg EVERY 12 HOURS ORAL 12/15/18 09:00 01/14/19 08:59 12/18/18 08:50 Allergies: Coded Allergies: ORANGE (Verified Allergy, Mild, Skin irritation/itching, 05/30/16) PINEAPPLE (Verified Allergy, Mild, Skin irritation/itching, 05/30/16) STRAWBERRY (Verified Allergy, Mild, Skin irritation/itching, 05/30/16) ACETAMINOPHEN (Verified Allergy, Unknown, 05/29/16) CODEINE (Verified Allergy, Unknown, 05/29/16) HYDROCODONE (Verified Allergy, Unknown, 05/29/16) PENICILLIN G (Verified Allergy, Unknown, 05/29/16) ROS Limited/Unobtainable: No Constitutional: Reports: no symptoms HEENT: Reports: no symptoms Cardiovascular: Reports: no symptoms Respiratory: Reports: no symptoms Gastrointestinal/Abdominal: Reports: no symptoms Genitourinary: Reports: no symptoms Neurologic/Psychiatric: Reports: no symptoms Subjective 78 YO F admitted with altered mental status and hypoglycemia. Now pneumonia. Cover for Int [place]-Dr Kaplan Objective Last Vital Signs Date Time Temp Pulse Resp B/P (MAP) Pulse Ox O2 Delivery O2 Flow Rate FiO2 12/18/18 12:00 98.2 80 18 122/68 (86) 98 12/18/18 09:05 Nasal Cannula 1.0 24 Laboratory Tests Test 12/18/18 06:40 White Blood Count 5.0 K/UL (4.8-10.8) Red Blood Count 4.39 M/UL (4.20-5.40) Hemoglobin 12.3 G/DL (12.0-16.0) Hematocrit 37.5 % (37.0-47.0) Mean Corpuscular Volume 85 FL (80-99) Mean Corpuscular Hemoglobin 28.0 PG (27.0-31.0) Mean Corpuscular Hemoglobin Concent 32.8 G/DL (32.0-36.0) Red Cell Distribution Width 12.7 % (11.6-14.8) Platelet Count 287 K/UL (150-450) Mean Platelet Volume 6.6 FL (6.5-10.1) Neutrophils (%) (Auto) 50.1 % (45.0-75.0) Lymphocytes (%) (Auto) 29.5 % (20.0-45.0) Monocytes (%) (Auto) 7.4 % (1.0-10.0) Eosinophils (%) (Auto) 12.1 % (0.0-3.0) H Basophils (%) (Auto) 1.1 % (0.0-2.0) Sodium Level 141 MMOL/L (136-145) Potassium Level 4.0 MMOL/L (3.5-5.1) Chloride Level 107 MMOL/L (98-107) Carbon Dioxide Level 27 MMOL/L (21-32) Anion Gap 8 mmol/L (5-15) Blood Urea Nitrogen 5 mg/dL (7-18) L Creatinine 0.8 MG/DL (0.55-1.30) Estimat Glomerular Filtration Rate mL/min (>60) Glucose Level 97 MG/DL (74-106) Calcium Level 9.3 MG/DL (8.5-10.1) Total Bilirubin 0.5 MG/DL (0.2-1.0) Aspartate Amino Transf (AST/SGOT) 38 U/L (15-37) H Alanine Aminotransferase (ALT/SGPT) 22 U/L (12-78) Alkaline Phosphatase 66 U/L (46-116) Pro-B-Type Natriuretic Peptide 47 pg/mL (0-125) Total Protein 7.7 G/DL (6.4-8.2) Albumin 2.6 G/DL (3.4-5.0) L Globulin 5.1 g/dL Albumin/Globulin Ratio 0.5 (1.0-2.7) L Intake and Output 12/17/18 12/18/18 19:00 07:00 Intake Total 885 ml Balance 885 ml Intake Oral 730 ml IV Total 155 ml # Voids 3 1 Objective PHYSICAL EXAMINATION: GENERAL: The patient is awake, responsive, groggy, sleepy occasionally. HEENT: Head and neck examination, pupils are reactive to light. Extraocular movements intact. NECK: Supple. No JVD. LUNGS: Good air entry. No wheezing or rhonchi. Decreased air entry in the bases. Poor inspiratory effort. HEART: S1 and S2. Regular rhythm. No gallops . ABDOMEN: Soft, nondistended, nontender. Positive bowel sounds. EXTREMITIES: No cyanosis, clubbing, or edema. NEUROLOGIC: Cranial nerves II through XII grossly normal. Motor is 5/5 in all extremities. Gait was not assessed due to the patient's status. RECTAL: Refused and deferred. GENITOURINARY: Refused and deferred. PSYCHIATRIC: Mood and affect is intact. Assessment/Plan Assessment/Plan ASSESSMENT: 1. Altered mental status 2. bilateral lower lobe pneumonia, aspiration 3. Hypertension. 4. COPD. 5. Hypoglycemia 6. Chronic Obstructive pulmonary dis 7. Alzheimer's dementia 8. Cerebral vascular dis PLAN: 1. Admit the patient to telemetry. 2. echo LVEF=60-65% 3. Discussed with the daughter extensively at bedside. 4. MRI of the brain=no acute infarct 5. Code status is Full Code. 6. Discussed with Dr. Hedrick from [facility]. 7. antibiotic = Rocephin and Flagyl. 8. DVT prophylaxis with heparin subcutaneous. 9. Neurology=Spencer Doe MD Dec 18, 2018 16:50
--- NOTE | 2018-12-18 17:00 | NUR ---
NURSE NOTES: Pt. in stable condition. VS stable. IV removed, intact, site covered. Belongings checked with family, signed, filed. air export logistics manager, name tag removed. DC teaching done. Pt. to follow up with primary MD within a week. New medication prescription given attached with discharge package. Flu vaccine given. Pt. left floor safely via wheelchair, accompanied by family member and AVIATION ELECTRONIC WARFARE OPERATOR.
--- NOTE | 2018-12-19 10:25 | Discharge Summary ---
Discharge Summary Discharge Summary _ DATE OF ADMISSION: 12/14/2018 DATE OF DISCHARGE: 12/18/2018 DISCHARGED BY: Dr. Kaplan REASON FOR ADMISSION: 78 years old female with past medical history significant for CVA x3, hypertension, COPD, dementia, status post appendectomy, glaucoma, presented initially to [facility] due to altered mental status. When patient was eating burrito, the family member noted that the patient was unresponsive . Patient subsequently was transferred to the hospital for further evaluation and management. After initial evaluation at [facility], patient was transferred to [facility] due to insurance purposes. Chest x-ray revealed bilateral lung infiltrates, concerning was concern for pneumonia, although the component of the pulmonary edema was likely present as well. CT scan of the head revealed brain atrophy with white matter ischemic changes, no acute infarction, bleeding, or mass effect was seen. No extraaxial fluid collection, probable lacunar infarction of the left basal ganglia and right thalamic, no acute findings, chronic changes of the brain atrophy with old lacunar infarction with white matter , ischemia. Patient admitted to telemetry floor for further management. CONSULTANTS: cell operator Dr. Oconnor neurologist Dr. Izquierdo coil assembler Dr. Hedrick [facility] COURSE: Patient admitted to telemetry floor and started on empiric antibiotic for pneumonia. Neurologist, coil assembler and cell operator closely followed. MRI of the brain revealed no clear acute intracranial process. Small chronic basal ganglia and left cerebellar infarcts. Generalized involutional and microvascular ischemic changes. Echocardiogram revealed preserved ejection fraction of 60 to 65% with no evidence of pericardial effusion. Mild left ventricular hypertrophy. Right ventricular systolic pressure of 13. EEG, as read by neurologist, revealed encephalopathy of mild degree. Per neurologist, patient's history, neurological examination, laboratory data and imaging study were most consistent with toxic metabolic encephalopathy related to episode of hypoglycemia and pneumonia, superimposed on structural brain disease , related to cerebrovascular disease and close head trauma. Neurologist recommended aggressive treatment of infection, correct metabolic encephalopathy and mobilize with the help of physical therapy. Rail Operations Controller closely followed. Chest x-ray revealed diffuse bilateral airspace opacity , worse in the right lung. Possible small pleural effusion. Cardiomegaly. Possibly CHF. Patient subsequently undergone CT scan of the chest, which revealed evidence of progressive pulmonary fibrosis with extensive honeycombing pattern, increased since prior study in 2017 , particularly on the right. No definite acute abnormality. Ectatic pulmonary artery suggestive ,but nondiagnostic for pulmonary arterial hypertension also previously described. Mediastinal lymphadenopathy , nonspecific as regards to etiology. Supplemental oxygen titrated to keep pulse oximetry above 92%. Bronchodilator treatment provided as needed. Theophylline initiated along with the Advair inhaler. DVT prophylaxis provided. Pl Sql Developer closely followed. Echocardiogram was stable. Telemetry revealed no significant arrhythmias. Lipid panel was stable. Antiplatelet therapy with aspirin continued . TSH was within normal limits. Blood pressure was managed with calcium channel fior. Supportive care provided. Bowel regimen instituted. Patient received influenza vaccine prior to discharge. Patient clinically stabilized and was ready for discharge home. FINAL DIAGNOSES: Aspiration pneumonia Acute toxic metabolic encephalopathy Pulmonary fibrosis Cerebrovascular disease with history of prior CVA COPD Hypertension Alzheimer's dementia DISCHARGE MEDICATIONS: See Medication Reconciliation list. DISCHARGE INSTRUCTIONS: Patient was discharged home. Follow up with primary care provider in one week. I have been assigned to dictate discharge summary for this account. I was not involved in the patient's management. Tawana Vigil NP Dec 19, 2018 10:25
== END 2018-12-18 17:00 | disposition home or self-care (01) | DRG 177 ==
LOC: 2E 14:45
DX: J69.0 Pneumonitis due to inhalation of food and vomit (principal); G92 Toxic encephalopathy; J44.9 Chronic obstructive pulmonary disease, unspecified; H40.9 Unspecified glaucoma; Z88.6 Allergy status to analgesic agent; Z88.0 Allergy status to penicillin; Z91.018 Allergy to other foods; I10 Essential (primary) hypertension; J84.10 Pulmonary fibrosis, unspecified; G30.9 Alzheimer's disease, unspecified; F02.80 Dementia in other diseases classified elsewhere, unspecified severity, without behavioral disturbance, psychotic disturbance, mood disturbance, and anxiety; Z23 Encounter for immunization; E16.2 Hypoglycemia, unspecified; I69.398 Other sequelae of cerebral infarction; G51.0 Bell's palsy; E78.5 Hyperlipidemia, unspecified; Z91.81 History of falling; R55 Syncope and collapse
CPT/HCPCS: 36415; 70551; 71045; 71260; 80048; 80053; 80061; 82306; 82607; 82746; 83036; 83735; 83880; 84100; 84443; 84484; 85025; 85651; 86592; 93005; 93306; 94640; 94664; 95819